=== PATIENT | female | born 2000 | race Caucasian/White ===

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

== ENCOUNTER 2019-05-10 17:04 | Emergency (ER) | payer OTHER, BC ==
[~2019-05-10] VITALS: Ht 160 cm; Wt 50.0 kg
[~2019-05-10 17:04] MED LIST: CIPR-225 PO
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
[2019-05-10] MEDS ORDERED: METH-313 PO (18:26)
--- OUTSIDE RECORDS SUMMARY | 2019-06-03 16:57 | XMS REPORT | Clinical Summary ---
Author Author Admin, E POS Organization [facility] SP Address Unknown SP Phone Unavailable SP Allergies, Adverse Reactions, Alerts Allergy Name Reaction Description Start Date Severity Status Pr ovider POS NKDA Critical Active Tara Luli SP Conditions or Problems Problem Name Problem Code Onset Date Status Entry Date Provider Comment Standard POSDescription Annotate POS SCOLIOSIS 737.30 Resolved Bubba Rao MD Scoliosis SP kyphoscoliosis], idiopathic SP Sports physical V70.3 Resolved Bubba Dyer Other SP medical examination for administrative purposes SP Sore throat 462 Resolved Bubba Rao MD Acute SP SP Otitis media - left 382.9 Resolved Bubba albarran MD SP otitis media SP Allergic rhinitis 477.9 Active Tara Garg APRN Allergic SPrhinitis, cause unspecified SP Contraceptive counseling V25.09 Resolved Bubba Rao SP Encounter for other general counseling and advice on contraceptive SP SP UTI 599.0 Resolved Bubba Rao MD Urinary tract SP site not specified SP Contraception management V25.09 Resolved Bubba Rao SP Encounter for other general counseling and advice on contraceptive SP SP Dysuria 788.1 Resolved Bubba Rao MD Dysuria SP Contraceptive management V25.09 Inactive Lg Schaefer MD SP Encounter for other general counseling a nd advice on contraceptive management SP SP Encounter for Surveillance of implantable subdermal contraceptiv e SP Aminta Schaefer MD SP Irregular menses 626.4 Active Aminta Schaefer MD Irregular SPmenstrual cycle SP Scoliosis, thoracolumbar, mild 737.30 Active 11/03 Bubba DOSS MD Scoliosis [and kyphoscoliosis], idiopath ic SP Well child examination (29d - 17y) V20.2 Active 2 Bubba DOSS MD Routine infant or child health check SP BMI less than 20 Active Martha Sorto MD Body Mass Index SP than 19, adult SP Underweight Active Martha Sorto MD Underweight SP Gross hematuria 597.1 Active Martha DOSS Gynecological examination, routine V72.3 Active 2 Aminta DOSS MD Special investigations and examinations - Gynecological examination SP SCOLIOSIS ICD-737.30 Inactive Bubba DOSS SP Sports physical ICD-V70.3 Inactive Bubba gibson MD SP SP Sore throat ICD-462 Inactive Bubba Rao MD SP SP Otitis media - left ICD-382.9 Inactive Bbuba DOSS SP Contraceptive counseling ICD-V25.09 Inactive Bubba DOSS MD SP UTI ICD-599.0 Inactive Bubba Rao MD 2016 SP Contraception management ICD-V25.09 Inactive Bubba DOSS MD SP Dysuria ICD-788.1 Inactive Bubba Rao MD 2016 SP Medication List Medication Instructions Start Date Stop Date Generic Name NDC Status Provider POS Instruction VITAMIN D-3 1000 UNIT ORAL CAPSULE 1 cap by mouth daily POS 99474183397 No Longer Active Tara Luli Active SP NEXPLANON 68 MG SUBCUTANEOUS IMPLANT ET ONOGESTREL 29478504471 SP Tara Luli Active SP DEPO-PROVERA 150 MG/ML INTRAMUSCULAR SUSPENSION 07/16 SP PRINCESS (CONTRACEP) 47420317446 No Longer Active Tara Rockwell Activ e SP IBUPROFEN 600 MG ORAL TABLET 1 tab po prn for back pain SP 03384184031 No Longer Active Aminta Schaefer MD Active SP DEPO-PROVERA 150 MG/ML INTRAMUSCULAR SUSPENSION one every 3 months SP PRINCESS (CONTRACEP) 79051391939 No Longer Active Aminta Schaefer MD A ctive SP BACTRIM DS 800-160 MG ORAL TABLET 1 po BID x 7 days 24/10/05 SP 31776948311 No Longer Active Bubba Rao MD Activ e SP AMOXICILLIN 500 MG ORAL CAPSULE 1 tab by mouth 3 times daily 201 12/11/21 SP AMOXICILLIN 06051632624 No Longer Active Javi Alexander MD Active SP FLONASE ALLERGY RELIEF 50 MCG/ACT NASAL SUSPENSION 2 SPRAYS EA NOSTRIL DAILY SP FLUTICASONE PROPIONATE 64380167139 No Longer Active Manisha DOSS MD Active SP AMOXICILLIN 500 MG ORAL CAPSULE 1 cap by mouth three times a day SP AMOXICILLIN 22687187139 No Longer Active Tara Garg APRN Active SP CYCLOBENZAPRINE HCL 10 MG ORAL TABLET Take 1/2 tab every evening SP HCL 22949065669 No Longer Active Ki FRAGA Activ e SP CYCLOBENZAPRINE HCL 10 MG ORAL TABLET Take 1/2 tab every evening SP HCL 10 MG ORAL TABLET 676452 CYCLOBENZAPRINE HCL Inactive SP FLONASE ALLERGY RELIEF 50 MCG/ACT NASAL SUSPENSION 2 SPRAYS EA NOSTRIL DAILY SP FLONASE ALLERGY RELIEF 50 MCG/ACT NASAL SUSPENSI ON 1743688 SP PROPIONATE Inactive SP DEPO-PROVERA 150 MG/ML INTRAMUSCULAR SUSPENSION one every 3 months SPPROVERA 150 MG/ML INTRAMUSCULAR SUSPENSION 0196466 MEDROXYPR OGEST PRINCESS SP Inactive SP IBUPROFEN 600 MG ORAL TABLET 1 tab po prn for back pain SP 600 MG ORAL TABLET 647999 IBUPROFEN Inactive SP DEPO-PROVERA 150 MG/ML INTRAMUSCULAR SUSPENSION 07/16 DEPO- SP 150 MG/ML INTRAMUSCULAR SUSPENSION 9345263 MEDROXYPROGEST PRINCESS (CO NTRACEP) SP VITAMIN D-3 1000 UNIT ORAL CAPSULE 1 cap by mouth daily VITAMIN D-3 FT8233 UNIT ORAL CAPSULE CHOLECALCIFEROL Inactive SP AMOXICILLIN 500 MG ORAL CAPSULE 1 cap by mouth three times a day SP AMOXICILLIN 500 MG ORAL CAPSULE 175204 AMOXICILLIN Inactive SP AMOXICILLIN 500 MG ORAL CAPSULE 1 tab by mouth 3 times daily 201 12/11/21 SP AMOXICILLIN 500 MG ORAL CAPSULE 738228 AMOXICILLIN Inactive SP BACTRIM DS 800-160 MG ORAL TABLET 1 po BID x 7 days 24/10/05 SP DS 800-160 MG ORAL TABLET 214622 SULFAMETHOXAZOLE-TRIMETHOPRIM I nactive SP Advance Directives Directive Description Start Date POS PERMISSION TO SHARE SP Immunizations Vaccine Administration Date Value Standard Mitchel cription POS hepatitis A immunization #1 Havrix Adult (HepA) 10PK Syringe SP A vaccine, unspecified formulation Vital Signs Date Name Value Unit Range Description POS blood pressure, diastolic, repeated by physician 84 BP diggs blood pressure, diastolic 84 mm[Hg] BP diggs blood pressure, systolic, repeated by physician 122 BP sys blood pressure, systolic 122 mm[Hg] BP sys height E&M 64 [in_us] Bdy height pulse rate E&M 111 /min Heart rate temperature E&M 99.2 [degF] Body temp erature weight E&M 111 [lb_av] Weight Measure d blood pressure, diastolic, repeated by physician 87 BP diggs blood pressure, diastolic 87 mm[Hg] BP diggs blood pressure, systolic, repeated by physician 120 BP sys blood pressure, systolic 120 mm[Hg] BP sys height E&M 64 [in_us] Bdy height pulse rate E&M 131 /min Heart rate temperature E&M 99.4 [degF] Body temp erature SP weight E&M 99 [lb_av] Weight Measure d SP Diagnostic Results Date Name Value Unit Range Description POS Lab Report: Chlamydia/GC APTIMA/56872 - Lab SP chlamydia DNA probe NOT DETECTED NOT DETECTED SP Lab Report: Chlamydia/GC APTIMA/84020 - Microbiology Neisseria gonorrhoeae DNA probe NOT DETECTED NO T DETECTED SP Office Visit: CN-hematuria with nagative CT scan - Chemistry RBC, urine, dipstick 3+ SP Office Visit: CN-hematuria with nagative CT scan - Urinalysis nitrite, urine, semiquantitative negative urobilinogen, urine, semiquantitative (dipstick) 0.2 leukocyte esterase, urine, by dipstick negative appearance, urine clear urine color yellow specific gravity, urine 1.030 SP pH, urine, semiquantitative 5.0 protein, urine, semiquantitative (dipstick) 3+ SP glucose, urine, semiquantitative negative ketones, urine, by test strip negative bilirubin, urine negative SP Encounters Code Encounter Date Provider Facility POS CPT-84572 Level 3 New Patient 16:31:45 IDENTIFICATION TECHNICIAN Martha mcgovern MD [facility] CPT-02059 Level 3 Est. Patient 15:18:56 IDENTIFICATION TECHNICIAN Aminta aleman MD [facility] CPT-36911 Level 3 New Patient 09:54:09 CDT Aminta crockett MD [facility] CPT-96037 Level 3 Est. Patient 16:13:04 CDT Bubba Rao MD [facility]-11620 Level 3 Est. Patient 09:13:57 CDT Javi helton MD [facility] CPT-86156 Level 3 Est. Patient 19:39:38 IDENTIFICATION TECHNICIAN Mona garcia APRN [facility] CPT-57908 Level 3 Est. Patient 16:36:36 IDENTIFICATION TECHNICIAN Tara Turk ll OLERICULTURIST [facility]ay[facility] CPT-02103 Level 3 Est. Patient 18:16:09 IDENTIFICATION TECHNICIAN Ki Guadalupe [facility] CPT-69258 Level 3 Est. Patient 23:51:12 CDT Dru Bowling ee DO [facility] Procedures Code Procedure Name Date Entry Date Standard Desc ription POS CPT-21397 92514 - Immun Admin each additional 1 3:29:02 IDENTIFICATION TECHNICIAN SP SP CPT-99150 Havrix Adult (HepA) 10PK Syringe 13:29:[address] SP CPT-10754 85629 - Immun Admin 1 vac 13:29:02 IDENTIFICATION TECHNICIAN 2018 SP CPT-04826 Bexsero (Meningococcal) 10PK Syringe 13:29:02 IDENTIFICATION TECHNICIAN SP CPT-54747 Prv Med Est Pt 18-39yrs 12:06:42 IDENTIFICATION TECHNICIAN 07/28 SP CPT-31327 Cystoscopy 16:31:45 IDENTIFICATION TECHNICIAN SP CPT-J1050 Depo Provera 150 mg (Medroxyprogesterone) 07/16 16:14:20 IDENTIFICATION TECHNICIAN SP SP CPT-28148 Abx/Therapy Injection 16:14:20 IDENTIFICATION TECHNICIAN SP CPT-J1050 Depo Provera 150 mg (Medroxyprogesterone) 07/16 15:18:56 IDENTIFICATION TECHNICIAN SP SP CPT-J1050 Depo Provera 150 mg (Medroxyprogesterone) 02/22 17:47:25 CDT SP SP CPT-40562 Abx/Therapy Injection 17:47:25 CDT SP CPT-J1050 Depo Provera 150 mg (Medroxyprogesterone) 11/29 15:01:13 CDT SP SP CPT-77847 Abx/Therapy Injection 15:01:13 CDT SP CPT-J1050 Depo Provera 150 mg (Medroxyprogesterone) 09/12 15:43:44 IDENTIFICATION TECHNICIAN SP CPT-74681 Abx/Therapy Injection 15:43:43 IDENTIFICATION TECHNICIAN SP CPT-J1050 Depo Provera 150 mg (Medroxyprogesterone) 08/20 15:27:07 IDENTIFICATION TECHNICIAN [facility] CPT-17580 Abx/Therapy Injection 15:27:07 IDENTIFICATION TECHNICIAN SP CPT-J1050 Depo Provera 150 mg (Medroxyprogesterone) 04/04 14:51:55 CDT [facility] CPT-02684 Abx/Therapy Injection 14:51:55 CDT SP CPT-J1050 Depo Provera 150 mg (Medroxyprogesterone) 01/06 16:36:56 CDT [facility] CPT-96413 Abx/Therapy Injection 16:36:56 CDT CPT-88567 Administration 2+ single or combination vaccines inc oral SP CDT SP CPT-15130 Meningococcal B, OMV vaccine 17:00:43 CDT 2 SP CPT-69544 First Vx - Ix admin via ID I M or jet injects without counseling by SP 17:00:43 CDT SP CPT-04530 Menveo Intramuscular Solution Reconstituted 2016 17:00:41 CDT [facility] CPT-77548 Scoliosis 1 view - XRAY USE ONLY 15:43:41 C DT SP CPT-PV Prev. Care Visit 15:17:45 CDT SP CPT-J1050 Depo Provera 150 mg (Medroxyprogesterone) 10/17 15:23:30 CDT SP CPT-03650 Abx/Therapy Injection 15:23:30 CDT CPT-J1050 Depo Provera 150 mg (Medroxyprogesterone) 10/17 09:54:10 CDT SP SP CPT-J1050 Depo Provera 150 mg (Medroxyprogesterone) 07/20 15:55:07 IDENTIFICATION TECHNICIAN SP SP CPT-18390 Abx/Therapy Injection 15:55:07 IDENTIFICATION TECHNICIAN SP CPT-J1050 Depo Provera 150 mg (Medroxyprogesterone) 07/20 14:13:45 IDENTIFICATION TECHNICIAN SP SP CPT-J1050 Depo Provera 150 mg (Medroxyprogesterone) 17:31:27 CDT SP SP CPT-61551 Abx/Therapy Injection 17:31:27 CDT SP CPT-J1050 Depo Provera 150 mg (Medroxyprogesterone) 08:47:12 CDT SP SP CPT-J1050 Depo Provera 150 mg (Medroxyprogesterone) 02/09 14:41:46 CDT SP SP CPT-J1050 Depo Provera 150 mg (Medroxyprogesterone) 02/08 10:57:18 CDT SP SP CPT-J1050 Depo Provera 150 mg (Medroxyprogesterone) 11/24 16:22:00 CDT SP SP CPT-28605 Abx/Therapy Injection 16:22:00 CDT SP CPT-J1050 Depo Provera 150 mg (Medroxyprogesterone) 09/07 15:03:00 IDENTIFICATION TECHNICIAN SP SP CPT-34041 Abx/Therapy Injection 15:03:00 IDENTIFICATION TECHNICIAN SP CPT-87357 Immunization Each Additional Inj 15:01:[address] SP CPT-00287 Immunization Single Admin 15:01:50 IDENTIFICATION TECHNICIAN 2015 SP CPT-80858 Vaqta (2 dose - Ped/Adol) 15:01:50 IDENTIFICATION TECHNICIAN 2015 SP CPT-07323 Gardasil 15:01:50 IDENTIFICATION TECHNICIAN ROMAR[facility] CPT-J1055 Depo-Provera Injection only 150mg 08:51:07 IDENTIFICATION TECHNICIAN [facility] CPT-07994 Scoliosis w sup/erect 17:37:29 CDT [facility]
--- OUTSIDE RECORDS SUMMARY | 2019-06-03 16:57 | XMS REPORT | Clinical Summary ---
Author Author Admin, SAPNA POS Organization [facility] SP Address Unknown SP Phone Unavailable SP [...] SP Otitis media - left ICD-382.9 Inactive Bubba DOSS SP Contraceptive counseling ICD-V25.09 Inactive Bubba DOSS MD SP UTI ICD-599.0 Inactive Bubba Rao MD 2016 SP Contraception management ICD-V25.09 Inactive Bubba DOSS MD SP Dysuria ICD-788.1 Inactive Bubba Rao MD 2016 SP Medication List Medication Instructions Start Date Stop Date Generic Name NDC Status Provider POS Instruction VITAMIN D-3 1000 UNIT ORAL CAPSULE 1 cap by mouth daily POS [id number] No Longer Active Tara Luli Active SP NEXPLANON 68 MG SUBCUTANEOUS IMPLANT ET ONOGESTREL [id number] SP Tara Luli Active SP DEPO-PROVERA 150 MG/ML INTRAMUSCULAR SUSPENSION 07/16 SP PRINCESS (CONTRACEP) 88446676951 No Longer Active Tara Rockwell Activ e SP IBUPROFEN 600 MG ORAL TABLET 1 tab po prn for back pain SP 71925967954 No Longer Active Aminta Schaefer MD Active SP DEPO-PROVERA 150 MG/ML INTRAMUSCULAR SUSPENSION one every 3 months SP PRINCESS (CONTRACEP) 55455890859 No Longer Active Aminta Schaefer MD A ctive SP BACTRIM DS 800-160 MG ORAL TABLET 1 po BID x 7 days 24/10/05 SP 91965155864 No Longer Active Bubba Rao MD Activ e SP AMOXICILLIN 500 MG ORAL CAPSULE 1 tab by mouth 3 times daily 201 12/11/21 SP AMOXICILLIN 46061878964 No Longer Active Javi Alexander MD Active SP FLONASE ALLERGY RELIEF 50 MCG/ACT NASAL SUSPENSION 2 SPRAYS EA NOSTRIL DAILY SP FLUTICASONE PROPIONATE 84743945426 No Longer Active Manisha DOSS MD Active SP AMOXICILLIN 500 MG ORAL CAPSULE 1 cap by mouth three times a day SP AMOXICILLIN 67943206546 No Longer Active Tara Garg APRN Active SP CYCLOBENZAPRINE HCL 10 MG ORAL TABLET Take 1/2 tab every evening SP HCL 41566549788 No Longer Active Ki FRAGA Activ e SP CYCLOBENZAPRINE HCL 10 MG ORAL TABLET Take 1/2 tab every evening SP HCL 10 MG ORAL TABLET 819425 CYCLOBENZAPRINE HCL Inactive SP FLONASE ALLERGY RELIEF 50 MCG/ACT NASAL SUSPENSION 2 SPRAYS EA NOSTRIL DAILY SP FLONASE ALLERGY RELIEF 50 MCG/ACT NASAL SUSPENSI ON 6666188 SP PROPIONATE Inactive SP DEPO-PROVERA 150 MG/ML INTRAMUSCULAR SUSPENSION one every 3 months SPPROVERA 150 MG/ML INTRAMUSCULAR SUSPENSION 1506093 MEDROXYPR OGEST PRINCESS SP Inactive SP IBUPROFEN 600 MG ORAL TABLET 1 tab po prn for back pain SP 600 MG ORAL TABLET 326539 IBUPROFEN Inactive SP DEPO-PROVERA 150 MG/ML INTRAMUSCULAR SUSPENSION 07/16 DEPO- SP 150 MG/ML INTRAMUSCULAR SUSPENSION 4082971 MEDROXYPROGEST PRINCESS (CO NTRACEP) SP VITAMIN D-3 1000 UNIT ORAL CAPSULE 1 cap by mouth daily VITAMIN D-3 [id number] UNIT ORAL CAPSULE CHOLECALCIFEROL Inactive SP AMOXICILLIN 500 MG ORAL CAPSULE 1 cap by mouth three times a day SP AMOXICILLIN 500 MG ORAL CAPSULE 748402 AMOXICILLIN Inactive SP AMOXICILLIN 500 MG ORAL CAPSULE 1 tab by mouth 3 times daily 201 12/11/21 SP AMOXICILLIN 500 MG ORAL CAPSULE 078140 AMOXICILLIN Inactive SP BACTRIM DS 800-160 MG ORAL TABLET 1 po BID x 7 days 24/10/05 SP DS 800-160 MG ORAL TABLET 315197 SULFAMETHOXAZOLE-TRIMETHOPRIM I nactive SP Advance Directives Directive [...] temperature E&M 99.4 [degF] Body temp erature weight E&M 99 [lb_av] Weight Measure d SP Diagnostic Results Date Name Value Unit Range Description POS Office Visit: CN-hematuria with nagative CT scan - Chemistry RBC, urine, dipstick 3+ SP Office Visit: CN-hematuria with nagative CT scan - Urinalysis SP nitrite, urine, semiquantitative negative SP urobilinogen, urine, semiquantitative (dipstick) 0.2 SP leukocyte esterase, urine, by dipstick negative appearance, urine clear SP urine color yellow SP specific gravity, urine 1.030 SP pH, urine, semiquantitative 5.0 SP protein, urine, semiquantitative (dipstick) 3+ SP glucose, urine, semiquantitative negative ketones, urine, by test strip negative bilirubin, urine negative SP Encounters Code Encounter Date Provider Facility POS CPT-59897 Level 3 New Patient 16:31:45 SCRAP DROP OPERATOR Martha mcgovern MD [facility] CPT-84272 Level 3 Est. Patient 15:18:56 SCRAP DROP OPERATOR Aminta aleman MD [facility] CPT-67365 Level 3 New Patient 09:54:09 CDT Aminta crockett MD [facility] CPT-13413 Level 3 Est. Patient 16:13:04 CDT Bubba Rao MD [facility] CPT-16307 Level 3 Est. Patient 09:13:57 CDT Javi helton MD [facility] CPT-66927 Level 3 Est. Patient 19:39:38 SCRAP DROP OPERATOR Mona garcia [facility] Level 3 Est. Patient 16:36:36 SCRAP DROP OPERATOR Tara finley [facility]20963 Level 3 Est. Patient 18:16:09 SCRAP DROP OPERATOR Ki FRAGA Anayeli Ql[facility] CPT-37006 Level 3 Est. Patient 23:51:12 CDT Dru Matson [facility] Procedures Code Procedure Name Date Entry Date Standard Desc ription POS CPT-81323 66569 - Immun Admin each additional 1 3:29:02 SCRAP DROP OPERATOR SP SP CPT-56720 Havrix Adult (HepA) 10PK Syringe 13:29:[address] SP CPT-00255 63393 - Immun Admin 1 vac 13:29:02 SCRAP DROP OPERATOR 2018 SP CPT-14488 Bexsero (Meningococcal) 10PK Syringe 13:29:02 SCRAP DROP OPERATOR SP SP CPT-55750 Prv Med Est Pt 18-39yrs 12:06:42 SCRAP DROP OPERATOR 07/28 SP CPT-82488 Cystoscopy 16:31:45 SCRAP DROP OPERATOR SP CPT-J1050 Depo Provera 150 mg (Medroxyprogesterone) 07/16 16:14:20 SCRAP DROP OPERATOR SP SP CPT-75462 Abx/Therapy Injection 16:14:20 SCRAP DROP OPERATOR SP CPT-J1050 Depo Provera 150 mg (Medroxyprogesterone) 07/16 15:18:56 SCRAP DROP OPERATOR SP SP CPT-J1050 Depo Provera 150 mg (Medroxyprogesterone) 02/22 17:47:25 CDT SP SP CPT-12205 Abx/Therapy Injection 17:47:25 CDT SP CPT-J1050 Depo Provera 150 mg (Medroxyprogesterone) 11/29 15:01:13 CDT SP SP CPT-68266 Abx/Therapy Injection 15:01:13 CDT SP CPT-J1050 Depo Provera 150 mg (Medroxyprogesterone) 09/12 15:43:44 SCRAP DROP OPERATOR SP SP CPT-29825 Abx/Therapy Injection 15:43:43 SCRAP DROP OPERATOR SP CPT-J1050 Depo Provera 150 mg (Medroxyprogesterone) 08/20 15:27:07 SCRAP DROP OPERATOR SP CPT-44697 Abx/Therapy Injection 15:27:07 SCRAP DROP OPERATOR SP CPT-J1050 Depo Provera 150 mg (Medroxyprogesterone) 04/04 14:51:55 CDT [facility] CPT-70665 Abx/Therapy Injection 14:51:55 CDT SP CPT-J1050 Depo Provera 150 mg (Medroxyprogesterone) 01/06 16:36:56 CDT [facility] CPT-96073 Abx/Therapy Injection 16:36:56 CDT SP CPT-95332 Administration 2+ single or combination vaccines inc oral SP CDT SP CPT-01567 Meningococcal B, OMV vaccine 17:00:43 CDT 2 SP CPT-68463 First Vx - Ix admin via ID I M or jet injects without counseling by SP 17:00:43 CDT SP CPT-75049 Menveo Intramuscular Solution Reconstituted 2016 17:00:41 CDT [facility] CPT-56454 Scoliosis 1 view - XRAY USE ONLY 15:43:41 C DT SP CPT-PV Prev. Care Visit 15:17:45 CDT SP CPT-J1050 Depo Provera 150 mg (Medroxyprogesterone) 10/17 15:23:30 CDT SP CPT-78909 Abx/Therapy Injection 15:23:30 CDT SP CPT-J1050 Depo Provera 150 mg (Medroxyprogesterone) 10/17 09:54:10 CDT SP CPT-J1050 Depo Provera 150 mg (Medroxyprogesterone) 07/20 15:55:07 SCRAP DROP OPERATOR SP CPT-93087 Abx/Therapy Injection 15:55:07 SCRAP DROP OPERATOR SP CPT-J1050 Depo Provera 150 mg (Medroxyprogesterone) 07/20 14:13:45 SCRAP DROP OPERATOR SP SP CPT-J1050 Depo Provera 150 mg (Medroxyprogesterone) 17:31:27 CDT SP SP CPT-55347 Abx/Therapy Injection 17:31:27 CDT SP CPT-J1050 Depo Provera 150 mg (Medroxyprogesterone) 08:47:12 CDT SP SP CPT-J1050 Depo Provera 150 mg (Medroxyprogesterone) 02/09 14:41:46 CDT SP SP CPT-J1050 Depo Provera 150 mg (Medroxyprogesterone) 02/08 10:57:18 CDT SP SP CPT-J1050 Depo Provera 150 mg (Medroxyprogesterone) 11/24 16:22:00 CDT SP SP CPT-24372 Abx/Therapy Injection 16:22:00 CDT SP CPT-J1050 Depo Provera 150 mg (Medroxyprogesterone) 09/07 15:03:00 SCRAP DROP OPERATOR SP SP CPT-34158 Abx/Therapy Injection 15:03:00 SCRAP DROP OPERATOR SP CPT-63915 Immunization Each Additional Inj 15:01:[address] SP CPT-25618 Immunization Single Admin 15:01:50 SCRAP DROP OPERATOR 2015 SP CPT-34137 Vaqta (2 dose - Ped/Adol) 15:01:50 SCRAP DROP OPERATOR 2015 SP CPT-70800 Gardasil 15:01:50 SCRAP DROP OPERATOR SP CPT-J1055 Depo-Provera Injection only 150mg 08:51:07 SCRAP DROP OPERATOR SP CPT-96930 Scoliosis w sup/erect 17:37:29 CDT SP
--- OUTSIDE RECORDS SUMMARY | 2019-06-03 16:58 | XMS REPORT | Clinical Summary ---
Author Author Admin, E POS Organization [facility] SP Address Unknown SP Phone Unavailable SP [...] CAPSULE 1 cap by mouth daily POS [id number] No Longer Active Tara Luli Active SP NEXPLANON 68 MG SUBCUTANEOUS IMPLANT ET ONOGESTREL 57494919909 SP Tara Luli Active SP DEPO-PROVERA 150 MG/ML INTRAMUSCULAR SUSPENSION 07/16 SP PRINCESS (CONTRACEP) 57341277704 No Longer Active Tara Rockwell Activ e SP IBUPROFEN 600 MG ORAL TABLET 1 tab po prn for back pain SP 96810288560 No Longer Active Aminta Schaefer MD Active SP DEPO-PROVERA 150 MG/ML INTRAMUSCULAR SUSPENSION one every 3 months SP PRINCESS (CONTRACEP) 16151331975 No Longer Active Aminta Schaefer MD A ctive SP BACTRIM DS 800-160 MG ORAL TABLET 1 po BID x 7 days 24/10/05 SP 04452023092 No Longer Active Bubba Rao MD Activ e SP AMOXICILLIN 500 MG ORAL CAPSULE 1 tab by mouth 3 times daily 201 12/11/21 SP AMOXICILLIN 39696220888 No Longer Active Javi Alexander MD Active SP FLONASE ALLERGY RELIEF 50 MCG/ACT NASAL SUSPENSION 2 SPRAYS EA NOSTRIL DAILY SP FLUTICASONE PROPIONATE 76127915123 No Longer Active Manisha DOSS MD Active SP AMOXICILLIN 500 MG ORAL CAPSULE 1 cap by mouth three times a day SP AMOXICILLIN 55950330894 No Longer Active Tara Garg APRN Active SP CYCLOBENZAPRINE HCL 10 MG ORAL TABLET Take 1/2 tab every evening SP HCL 18999556669 No Longer Active Ki FRAGA Activ e SP CYCLOBENZAPRINE HCL 10 MG ORAL TABLET Take 1/2 tab every evening SP HCL 10 MG ORAL TABLET 744201 CYCLOBENZAPRINE HCL Inactive SP FLONASE ALLERGY RELIEF 50 MCG/ACT NASAL SUSPENSION 2 SPRAYS EA NOSTRIL DAILY SP FLONASE ALLERGY RELIEF 50 MCG/ACT NASAL SUSPENSI ON 6653089 SP PROPIONATE Inactive SP DEPO-PROVERA 150 MG/ML INTRAMUSCULAR SUSPENSION one every 3 months SPPROVERA 150 MG/ML INTRAMUSCULAR SUSPENSION 5675785 MEDROXYPR OGEST PRINCESS SP Inactive SP IBUPROFEN 600 MG ORAL TABLET 1 tab po prn for back pain SP 600 MG ORAL TABLET 043228 IBUPROFEN Inactive SP DEPO-PROVERA 150 MG/ML INTRAMUSCULAR SUSPENSION 07/16 DEPO- SP 150 MG/ML INTRAMUSCULAR SUSPENSION 7871090 MEDROXYPROGEST PRINCESS (CO NTRACEP) SP VITAMIN D-3 1000 UNIT ORAL CAPSULE 1 cap by mouth daily VITAMIN D-3 ZK2809 UNIT ORAL CAPSULE CHOLECALCIFEROL Inactive SP AMOXICILLIN 500 MG ORAL CAPSULE 1 cap by mouth three times a day SP AMOXICILLIN 500 MG ORAL CAPSULE 854630 AMOXICILLIN Inactive SP AMOXICILLIN 500 MG ORAL CAPSULE 1 tab by mouth 3 times daily 201 12/11/21 SP AMOXICILLIN 500 MG ORAL CAPSULE 788508 AMOXICILLIN Inactive SP BACTRIM DS 800-160 MG ORAL TABLET 1 po BID x 7 days 24/10/05 SP DS 800-160 MG ORAL TABLET 126657 SULFAMETHOXAZOLE-TRIMETHOPRIM I nactive SP Advance Directives Directive Description Start Date POS PERMISSION TO SHARE SP Vital Signs Date Name Value Unit Range Description POS blood pressure, diastolic, repeated by physician 84 BP diggs blood pressure, diastolic 84 mm[Hg] BP diggs blood pressure, systolic, repeated by physician 122 BP sys blood pressure, systolic 122 mm[Hg] BP sys height E&M 64 [in_us] Bdy height SP pulse rate E&M 111 /min Heart rate SP temperature E&M 99.2 [degF] Body temp erature SP weight E&M 111 [lb_av] Weight Measure d SP blood pressure, diastolic, repeated by physician 87 BP diggs blood pressure, diastolic 87 mm[Hg] BP diggs blood pressure, systolic, repeated by physician 120 BP sys blood pressure, systolic 120 mm[Hg] BP sys height E&M 64 [in_us] Bdy height pulse rate E&M 131 /min Heart rate SP temperature E&M 99.4 [degF] Body temp erature weight E&M 99 [lb_av] Weight Measure d SP Diagnostic Results Date Name Value Unit Range Description POS Office Visit: CN-hematuria with nagative CT scan - Chemistry SP RBC, urine, dipstick 3+ SP Office Visit: [...] Encounters Code Encounter Date Provider Facility POS CPT-44737 Level 3 New Patient 16:31:45 BOARD CATCHER Martha mcgovern MD [facility] CPT-18609 Level 3 Est. Patient 15:18:56 BOARD CATCHER Aminta aleman MD [facility] CPT-23355 Level 3 New Patient 09:54:09 CDT Aminta crockett MD [facility]-78368 Level 3 Est. Patient 16:13:04 CDT Bubba Rao MD [facility] CPT-74873 Level 3 Est. Patient 09:13:57 CDT Javi helton MD [facility] CPT-21504 Level 3 Est. Patient 19:39:38 BOARD CATCHER Mona garcia [facility] CPT-21314 Level 3 Est. Patient 16:36:36 BOARD CATCHER Tara finley [facility]-08753 Level 3 Est. Patient 18:16:09 BOARD CATCHER Ki FRAGA [facility] CPT-00803 Level 3 Est. Patient 23:51:12 CDT Dru jacobs DO [facility] Procedures Code Procedure Name Date Entry Date Standard Desc ription POS CPT-40513 Prv Med Est Pt 18-39yrs 12:06:42 BOARD CATCHER 07/28 SP CPT-79465 Cystoscopy 16:31:45 BOARD CATCHER SP CPT-J1050 Depo Provera 150 mg (Medroxyprogesterone) 07/16 16:14:20 BOARD CATCHER SP SP CPT-77802 Abx/Therapy Injection 16:14:20 BOARD CATCHER SP CPT-J1050 Depo Provera 150 mg (Medroxyprogesterone) 07/16 15:18:56 BOARD CATCHER SP SP CPT-J1050 Depo Provera 150 mg (Medroxyprogesterone) 02/22 17:47:25 CDT SP SP CPT-64136 Abx/Therapy Injection 17:47:25 CDT SP CPT-J1050 Depo Provera 150 mg (Medroxyprogesterone) 11/29 15:01:13 CDT SP SP CPT-29817 Abx/Therapy Injection 15:01:13 CDT SP CPT-J1050 Depo Provera 150 mg (Medroxyprogesterone) 09/12 15:43:44 BOARD CATCHER SP SP CPT-14844 Abx/Therapy Injection 15:43:43 BOARD CATCHER SP CPT-J1050 Depo Provera 150 mg (Medroxyprogesterone) 08/20 15:27:07 BOARD CATCHER SP SP CPT-13079 Abx/Therapy Injection 15:27:07 BOARD CATCHER SP CPT-J1050 Depo Provera 150 mg (Medroxyprogesterone) 04/04 14:51:55 CDT SP SP CPT-80785 Abx/Therapy Injection 14:51:55 CDT SP CPT-J1050 Depo Provera 150 mg (Medroxyprogesterone) 01/06 16:36:56 CDT SP SP CPT-25389 Abx/Therapy Injection 16:36:56 CDT SP CPT-32164 Administration 2+ single or combination vaccines inc oral SP CDT SP CPT-52615 Meningococcal B, OMV vaccine 17:00:43 CDT 2 SP CPT-30182 First Vx - Ix admin via ID I M or jet injects without counseling by SP 17:00:43 CDT SP CPT-21505 Menveo Intramuscular Solution Reconstituted 2016 17:00:41 CDT SP SP CPT-78002 Scoliosis 1 view - XRAY USE ONLY 15:43:41 C DT ROMARIO CPT-PV Prev. Care Visit 15:17:45 CDT SP CPT-J1050 Depo Provera 150 mg (Medroxyprogesterone) 10/17 15:23:30 CDT [facility] CPT-51558 Abx/Therapy Injection 15:23:30 CDT CPT-J1050 Depo Provera 150 mg (Medroxyprogesterone) 10/17 09:54:10 CDT [facility] CPT-J1050 Depo Provera 150 mg (Medroxyprogesterone) 07/20 15:55:07 BOARD CATCHER [facility] CPT-09696 Abx/Therapy Injection 15:55:07 BOARD CATCHER CPT-J1050 Depo Provera 150 mg (Medroxyprogesterone) 07/20 14:13:45 BOARD CATCHER [facility] CPT-J1050 Depo Provera 150 mg (Medroxyprogesterone) 17:31:27 CDT [facility] CPT-43295 Abx/Therapy Injection 17:31:27 CDT CPT-J1050 Depo Provera 150 mg (Medroxyprogesterone) 08:47:12 CDT [facility] CPT-J1050 Depo Provera 150 mg (Medroxyprogesterone) 02/09 14:41:46 CDT SP SP CPT-J1050 Depo Provera 150 mg (Medroxyprogesterone) 02/08 10:57:18 CDT SP SP CPT-J1050 Depo Provera 150 mg (Medroxyprogesterone) 11/24 16:22:00 CDT SP SP CPT-77165 Abx/Therapy Injection 16:22:00 CDT SP CPT-J1050 Depo Provera 150 mg (Medroxyprogesterone) 09/07 15:03:00 BOARD CATCHER SP SP CPT-05305 Abx/Therapy Injection 15:03:00 BOARD CATCHER SP CPT-03196 Immunization Each Additional Inj 15:01:[address] SP CPT-02001 Immunization Single Admin 15:01:50 BOARD CATCHER 2015 SP CPT-39057 Vaqta (2 dose - Ped/Adol) 15:01:50 BOARD CATCHER 2015 SP CPT-81921 Gardasil 15:01:50 BOARD CATCHER SP CPT-J1055 Depo-Provera Injection only 150mg 08:51:07 BOARD CATCHER SP CPT-07665 Scoliosis w sup/erect 17:37:29 CDT SP
--- OUTSIDE RECORDS SUMMARY | 2019-06-03 16:58 | XMS REPORT | Clinical Summary ---
Author Author Admin, SAPNA POS Organization [employer] SP Address Unknown SP Phone Unavailable SP [...] CAPSULE 1 cap by mouth daily POS 70289406830 No Longer Active Tara Luli Active SP NEXPLANON 68 MG SUBCUTANEOUS IMPLANT ET ONOGESTREL 55560056992 SP Tara Luli Active SP DEPO-PROVERA 150 MG/ML INTRAMUSCULAR SUSPENSION 07/16 SP PRINCESS (CONTRACEP) 24190249498 No Longer Active Tara Rockwell Activ e SP IBUPROFEN 600 MG ORAL TABLET 1 tab po prn for back pain SP 02149245385 No Longer Active Aminta Schaefer MD Active SP DEPO-PROVERA 150 MG/ML INTRAMUSCULAR SUSPENSION one every 3 months SP PRINCESS (CONTRACEP) 44358974150 No Longer Active Aminta Schaefer MD A ctive SP BACTRIM DS 800-160 MG ORAL TABLET 1 po BID x 7 days 24/10/05 SP 58622629632 No Longer Active Bubba Rao MD Activ e SP AMOXICILLIN 500 MG ORAL CAPSULE 1 tab by mouth 3 times daily 201 12/11/21 SP AMOXICILLIN 44164571290 No Longer Active Javi Alexander MD Active SP FLONASE ALLERGY RELIEF 50 MCG/ACT NASAL SUSPENSION 2 SPRAYS EA NOSTRIL DAILY SP FLUTICASONE PROPIONATE 62116444047 No Longer Active Manisha DOSS MD Active SP AMOXICILLIN 500 MG ORAL CAPSULE 1 cap by mouth three times a day SP AMOXICILLIN 18782765206 No Longer Active Tara Garg APRN Active SP CYCLOBENZAPRINE HCL 10 MG ORAL TABLET Take 1/2 tab every evening SP HCL 29387351567 No Longer Active Ki FRAGA Activ e SP CYCLOBENZAPRINE HCL 10 MG ORAL TABLET Take 1/2 tab every evening SP HCL 10 MG ORAL TABLET 167852 CYCLOBENZAPRINE HCL Inactive SP FLONASE ALLERGY RELIEF 50 MCG/ACT NASAL SUSPENSION 2 SPRAYS EA NOSTRIL DAILY SP FLONASE ALLERGY RELIEF 50 MCG/ACT NASAL SUSPENSI ON 8889901 SP PROPIONATE Inactive SP DEPO-PROVERA 150 MG/ML INTRAMUSCULAR SUSPENSION one every 3 months SPPROVERA 150 MG/ML INTRAMUSCULAR SUSPENSION 6396557 MEDROXYPR OGEST PRINCESS SP Inactive SP IBUPROFEN 600 MG ORAL TABLET 1 tab po prn for back pain SP 600 MG ORAL TABLET 723760 IBUPROFEN Inactive SP DEPO-PROVERA 150 MG/ML INTRAMUSCULAR SUSPENSION 07/16 DEPO- SP 150 MG/ML INTRAMUSCULAR SUSPENSION 7077047 MEDROXYPROGEST PRINCESS (CO NTRACEP) SP VITAMIN D-3 1000 UNIT ORAL CAPSULE 1 cap by mouth daily VITAMIN D-3 MC7940 UNIT ORAL CAPSULE CHOLECALCIFEROL Inactive SP AMOXICILLIN 500 MG ORAL CAPSULE 1 cap by mouth three times a day SP AMOXICILLIN 500 MG ORAL CAPSULE 911047 AMOXICILLIN Inactive SP AMOXICILLIN 500 MG ORAL CAPSULE 1 tab by mouth 3 times daily 201 12/11/21 SP AMOXICILLIN 500 MG ORAL CAPSULE 272681 AMOXICILLIN Inactive SP BACTRIM DS 800-160 MG ORAL TABLET 1 po BID x 7 days 24/10/05 SP DS 800-160 MG ORAL TABLET 656084 SULFAMETHOXAZOLE-TRIMETHOPRIM I nactive SP Advance Directives Directive [...] Encounters Code Encounter Date Provider Facility POS CPT-79071 Level 3 New Patient 16:31:45 CHEESE SPRAYER Martha mcgovern MD [facility] CPT-59613 Level 3 Est. Patient 15:18:56 CHEESE SPRAYER Aminta aleman MD [facility] CPT-34071 Level 3 New Patient 09:54:09 CDT Aminta crockett MD [facility] CPT-02472 Level 3 Est. Patient 16:13:04 CDT Bubba Rao MD [facility] CPT-60587 Level 3 Est. Patient 09:13:57 CDT Javi helton MD [facility] CPT-80463 Level 3 Est. Patient 19:39:38 CHEESE SPRAYER [facility] Level 3 Est. Patient 16:36:36 CHEESE SPRAYER [facility] fin[facility] CPT-48954 Level 3 Est. Patient 18:16:09 CHEESE SPRAYER Ki FRAGA [facility] CPT-04294 Level 3 Est. Patient 23:51:12 CDT Dru Matson [facility] Procedures Code Procedure Name Date Entry Date Standard Desc ription POS CPT-08127 34644 - Immun Admin each additional 1 3:29:02 CHEESE SPRAYER SP SP CPT-66867 Havrix Adult (HepA) 10PK Syringe 13:29:[address] SP CPT-19276 45520 - Immun Admin 1 vac 13:29:02 CHEESE SPRAYER 2018 SP CPT-00891 Bexsero (Meningococcal) 10PK Syringe 13:29:02 CHEESE SPRAYER SP SP CPT-04009 Prv Med Est Pt 18-39yrs 12:06:42 CHEESE SPRAYER 07/28 SP CPT-50139 Cystoscopy 16:31:45 CHEESE SPRAYER SP CPT-J1050 Depo Provera 150 mg (Medroxyprogesterone) 07/16 16:14:20 CHEESE SPRAYER SP SP CPT-39086 Abx/Therapy Injection 16:14:20 CHEESE SPRAYER SP CPT-J1050 Depo Provera 150 mg (Medroxyprogesterone) 07/16 15:18:56 CHEESE SPRAYER SP SP CPT-J1050 Depo Provera 150 mg (Medroxyprogesterone) 02/22 17:47:25 CDT SP SP CPT-60289 Abx/Therapy Injection 17:47:25 CDT SP CPT-J1050 Depo Provera 150 mg (Medroxyprogesterone) 11/29 15:01:13 CDT SP SP CPT-99168 Abx/Therapy Injection 15:01:13 CDT SP CPT-J1050 Depo Provera 150 mg (Medroxyprogesterone) 09/12 15:43:44 CHEESE SPRAYER SP SP CPT-29563 Abx/Therapy Injection 15:43:43 CHEESE SPRAYER SP CPT-J1050 Depo Provera 150 mg (Medroxyprogesterone) 08/20 15:27:07 CHEESE SPRAYER SP CPT-96017 Abx/Therapy Injection 15:27:07 CHEESE SPRAYER SP CPT-J1050 Depo Provera 150 mg (Medroxyprogesterone) 04/04 14:51:55 CDT [facility] CPT-28484 Abx/Therapy Injection 14:51:55 CDT SP CPT-J1050 Depo Provera 150 mg (Medroxyprogesterone) 01/06 16:36:56 CDT [facility] CPT-45984 Abx/Therapy Injection 16:36:56 CDT SP CPT-35423 Administration 2+ single or combination vaccines inc oral SP CDT SP CPT-22185 Meningococcal B, OMV vaccine 17:00:43 CDT 2 SP CPT-42486 First Vx - Ix admin via ID I M or jet injects without counseling by SP 17:00:43 CDT SP CPT-27038 Menveo Intramuscular Solution Reconstituted 2016 17:00:41 CDT [facility] CPT-74997 Scoliosis 1 view - XRAY USE ONLY 15:43:41 C DT SP CPT-PV Prev. Care Visit 15:17:45 CDT SP CPT-J1050 Depo Provera 150 mg (Medroxyprogesterone) 10/17 15:23:30 CDT SP CPT-45617 Abx/Therapy Injection 15:23:30 CDT SP CPT-J1050 Depo Provera 150 mg (Medroxyprogesterone) 10/17 09:54:10 CDT SP CPT-J1050 Depo Provera 150 mg (Medroxyprogesterone) 07/20 15:55:07 CHEESE SPRAYER SP CPT-76320 Abx/Therapy Injection 15:55:07 CHEESE SPRAYER SP CPT-J1050 Depo Provera 150 mg (Medroxyprogesterone) 07/20 14:13:45 CHEESE SPRAYER SP SP CPT-J1050 Depo Provera 150 mg (Medroxyprogesterone) 17:31:27 CDT SP SP CPT-81368 Abx/Therapy Injection 17:31:27 CDT SP CPT-J1050 Depo Provera 150 mg (Medroxyprogesterone) 08:47:12 CDT SP SP CPT-J1050 Depo Provera 150 mg (Medroxyprogesterone) 02/09 14:41:46 CDT SP SP CPT-J1050 Depo Provera 150 mg (Medroxyprogesterone) 02/08 10:57:18 CDT SP SP CPT-J1050 Depo Provera 150 mg (Medroxyprogesterone) 11/24 16:22:00 CDT SP SP CPT-34955 Abx/Therapy Injection 16:22:00 CDT SP CPT-J1050 Depo Provera 150 mg (Medroxyprogesterone) 09/07 15:03:00 CHEESE SPRAYER SP SP CPT-55318 Abx/Therapy Injection 15:03:00 [employer] SP CPT-07710 Immunization Each Additional Inj 15:01:[address] SP CPT-76154 Immunization Single Admin 15:01:50 [employer] 2015 SP CPT-27847 Vaqta (2 dose - Ped/Adol) 15:01:50 [employer] 2015 SP CPT-06772 Gardasil 15:01:50 [employer] SP CPT-J1055 Depo-Provera Injection only 150mg 08:51:07 [employer] SP CPT-66000 Scoliosis w sup/erect 17:37:29 CDT SP
--- OUTSIDE RECORDS SUMMARY | 2019-06-03 16:58 | XMS REPORT | Clinical Summary ---
Author Author Admin, E POS Organization [facility] SP Address Unknown SP Phone Unavailable SP [...] CAPSULE 1 cap by mouth daily POS [id number] No Longer Active Tara Luli Active SP NEXPLANON 68 MG SUBCUTANEOUS IMPLANT ET ONOGESTREL [id number] SP Tara Luli Active SP DEPO-PROVERA 150 MG/ML INTRAMUSCULAR SUSPENSION 07/16 SP PRINCESS (CONTRACEP) 69449921205 No Longer Active Tara Rockwell Activ e SP IBUPROFEN 600 MG ORAL TABLET 1 tab po prn for back pain SP 82177387650 No Longer Active Aminta Schaefer MD Active SP DEPO-PROVERA 150 MG/ML INTRAMUSCULAR SUSPENSION one every 3 months SP PRINCESS (CONTRACEP) 63437872568 No Longer Active Aminta Schaefer MD A ctive SP BACTRIM DS 800-160 MG ORAL TABLET 1 po BID x 7 days 24/10/05 SP 62664007988 No Longer Active Bubba Rao MD Activ e SP AMOXICILLIN 500 MG ORAL CAPSULE 1 tab by mouth 3 times daily 201 12/11/21 SP AMOXICILLIN 31639544095 No Longer Active Javi Alexander MD Active SP FLONASE ALLERGY RELIEF 50 MCG/ACT NASAL SUSPENSION 2 SPRAYS EA NOSTRIL DAILY SP FLUTICASONE PROPIONATE 63707018235 No Longer Active Manisha DOSS MD Active SP AMOXICILLIN 500 MG ORAL CAPSULE 1 cap by mouth three times a day SP AMOXICILLIN 58646582171 No Longer Active Tara Garg APRN Active SP CYCLOBENZAPRINE HCL 10 MG ORAL TABLET Take 1/2 tab every evening SP HCL 41120948794 No Longer Active Ki FRAGA Activ e SP CYCLOBENZAPRINE HCL 10 MG ORAL TABLET Take 1/2 tab every evening SP HCL 10 MG ORAL TABLET 217513 CYCLOBENZAPRINE HCL Inactive SP FLONASE ALLERGY RELIEF 50 MCG/ACT NASAL SUSPENSION 2 SPRAYS EA NOSTRIL DAILY SP FLONASE ALLERGY RELIEF 50 MCG/ACT NASAL SUSPENSI ON 5461733 SP PROPIONATE Inactive SP DEPO-PROVERA 150 MG/ML INTRAMUSCULAR SUSPENSION one every 3 months SPPROVERA 150 MG/ML INTRAMUSCULAR SUSPENSION 8265337 MEDROXYPR OGEST PRINCESS SP Inactive SP IBUPROFEN 600 MG ORAL TABLET 1 tab po prn for back pain SP 600 MG ORAL TABLET 650076 IBUPROFEN Inactive SP DEPO-PROVERA 150 MG/ML INTRAMUSCULAR SUSPENSION 07/16 DEPO- SP 150 MG/ML INTRAMUSCULAR SUSPENSION 1682662 MEDROXYPROGEST PRINCESS ([place] NTRACEP) SP VITAMIN D-3 1000 UNIT ORAL CAPSULE 1 cap by mouth daily VITAMIN D-3 MC5238 UNIT ORAL CAPSULE CHOLECALCIFEROL Inactive SP AMOXICILLIN 500 MG ORAL CAPSULE 1 cap by mouth three times a day SP AMOXICILLIN 500 MG ORAL CAPSULE 210506 AMOXICILLIN Inactive SP AMOXICILLIN 500 MG ORAL CAPSULE 1 tab by mouth 3 times daily 201 12/11/21 SP AMOXICILLIN 500 MG ORAL CAPSULE 379569 AMOXICILLIN Inactive SP BACTRIM DS 800-160 MG ORAL TABLET 1 po BID x 7 days 24/10/05 SP DS 800-160 MG ORAL TABLET 290432 SULFAMETHOXAZOLE-TRIMETHOPRIM I nactive SP Advance Directives Directive [...] appearance, urine clear SP urine color yellow specific gravity, urine 1.030 SP pH, urine, semiquantitative 5.0 SP protein, urine, semiquantitative (dipstick) 3+ SP glucose, urine, semiquantitative negative ketones, urine, by test strip negative bilirubin, urine negative SP Encounters Code Encounter Date Provider Facility POS CPT-73310 Level 3 New Patient 16:31:45 PROCESS CONTROL PROGRAMMER Martha mcgovern MD [facility] CPT-33659 Level 3 Est. Patient 15:18:56 PROCESS CONTROL PROGRAMMER Aminta aleman MD [facility] CPT-62072 Level 3 New Patient 09:54:09 CDT Aminta crockett MD [facility] CPT-52411 Level 3 Est. Patient 16:13:04 CDT Bubba Rao MD [facility] CPT-51537 Level 3 Est. Patient 09:13:57 CDT Javi helton MD [facility] CPT-15494 Level 3 Est. Patient 19:39:38 PROCESS CONTROL PROGRAMMER Mona garcia [facility] Level 3 Est. Patient 16:36:36 PROCESS CONTROL PROGRAMMER Tara finley [facility]ASH [employer] [facility] CPT-59090 Level 3 Est. Patient 18:16:09 PROCESS CONTROL PROGRAMMER Ki FRAGA [facility]-90240 Level 3 Est. Patient 23:51:12 CDT Dru Matson [facility] Procedures Code Procedure Name Date Entry Date Standard Desc ription POS CPT-02651 71748 - Immun Admin each additional 1 3:29:02 PROCESS CONTROL PROGRAMMER SP SP CPT-05219 Havrix Adult (HepA) 10PK Syringe 13:29:[address] SP CPT-51402 96906 - Immun Admin 1 vac 13:29:02 PROCESS CONTROL PROGRAMMER 2018 SP CPT-67635 Bexsero (Meningococcal) 10PK Syringe 13:29:02 PROCESS CONTROL PROGRAMMER SP SP CPT-86170 Prv Med Est Pt 18-39yrs 12:06:42 PROCESS CONTROL PROGRAMMER 07/28 SP CPT-30371 Cystoscopy 16:31:45 PROCESS CONTROL PROGRAMMER SP CPT-J1050 Depo Provera 150 mg (Medroxyprogesterone) 07/16 16:14:20 PROCESS CONTROL PROGRAMMER SP SP CPT-17232 Abx/Therapy Injection 16:14:20 PROCESS CONTROL PROGRAMMER SP CPT-J1050 Depo Provera 150 mg (Medroxyprogesterone) 07/16 15:18:56 PROCESS CONTROL PROGRAMMER SP SP CPT-J1050 Depo Provera 150 mg (Medroxyprogesterone) 02/22 17:47:25 CDT SP SP CPT-89526 Abx/Therapy Injection 17:47:25 CDT SP CPT-J1050 Depo Provera 150 mg (Medroxyprogesterone) 11/29 15:01:13 CDT SP SP CPT-10636 Abx/Therapy Injection 15:01:13 CDT SP CPT-J1050 Depo Provera 150 mg (Medroxyprogesterone) 09/12 15:43:44 PROCESS CONTROL PROGRAMMER SP SP CPT-48897 Abx/Therapy Injection 15:43:43 PROCESS CONTROL PROGRAMMER SP CPT-J1050 Depo Provera 150 mg (Medroxyprogesterone) 08/20 15:27:07 PROCESS CONTROL PROGRAMMER SP CPT-76857 Abx/Therapy Injection 15:27:07 PROCESS CONTROL PROGRAMMER SP CPT-J1050 Depo Provera 150 mg (Medroxyprogesterone) 04/04 14:51:55 CDT SP CPT-15965 Abx/Therapy Injection 14:51:55 CDT SP CPT-J1050 Depo Provera 150 mg (Medroxyprogesterone) 01/06 16:36:56 CDT [facility] CPT-80681 Abx/Therapy Injection 16:36:56 CDT SP CPT-31858 Administration 2+ single or combination vaccines inc oral SP CDT SP CPT-11548 Meningococcal B, OMV vaccine 17:00:43 CDT 2 SP CPT-77489 First Vx - Ix admin via ID I M or jet injects without counseling by SP 17:00:43 CDT SP CPT-76823 Menveo Intramuscular Solution Reconstituted 2016 17:00:41 CDT [facility] CPT-28151 Scoliosis 1 view - XRAY USE ONLY 15:43:41 C DT SP CPT-PV Prev. Care Visit 15:17:45 CDT SP CPT-J1050 Depo Provera 150 mg (Medroxyprogesterone) 10/17 15:23:30 CDT SP CPT-79908 Abx/Therapy Injection 15:23:30 CDT SP CPT-J1050 Depo Provera 150 mg (Medroxyprogesterone) 10/17 09:54:10 CDT [facility] CPT-J1050 Depo Provera 150 mg (Medroxyprogesterone) 07/20 15:55:07 PROCESS CONTROL PROGRAMMER SP CPT-88328 Abx/Therapy Injection 15:55:07 PROCESS CONTROL PROGRAMMER SP CPT-J1050 Depo Provera 150 mg (Medroxyprogesterone) 07/20 14:13:45 PROCESS CONTROL PROGRAMMER SP SP CPT-J1050 Depo Provera 150 mg (Medroxyprogesterone) 17:31:27 CDT SP SP CPT-84533 Abx/Therapy Injection 17:31:27 CDT SP CPT-J1050 Depo Provera 150 mg (Medroxyprogesterone) 08:47:12 CDT SP SP CPT-J1050 Depo Provera 150 mg (Medroxyprogesterone) 02/09 14:41:46 CDT SP SP CPT-J1050 Depo Provera 150 mg (Medroxyprogesterone) 02/08 10:57:18 CDT SP SP CPT-J1050 Depo Provera 150 mg (Medroxyprogesterone) 11/24 16:22:00 CDT SP SP CPT-31961 Abx/Therapy Injection 16:22:00 CDT SP CPT-J1050 Depo Provera 150 mg (Medroxyprogesterone) 09/07 15:03:00 PROCESS CONTROL PROGRAMMER SP SP CPT-80115 Abx/Therapy Injection 15:03:00 PROCESS CONTROL PROGRAMMER SP CPT-76536 Immunization Each Additional Inj 15:01:[address] SP CPT-14408 Immunization Single Admin 15:01:50 PROCESS CONTROL PROGRAMMER 2015 SP CPT-91153 Vaqta (2 dose - Ped/Adol) 15:01:50 PROCESS CONTROL PROGRAMMER 2015 SP CPT-36465 Gardasil 15:01:50 PROCESS CONTROL PROGRAMMER SP CPT-J1055 Depo-Provera Injection only 150mg 08:51:07 PROCESS CONTROL PROGRAMMER SP CPT-84233 Scoliosis w sup/erect 17:37:29 CDT SP
--- OUTSIDE RECORDS SUMMARY | 2019-06-03 16:59 | XMS REPORT | Clinical Summary ---
Author Author Admin, SAPNA POS Organization [facility] SP Address Unknown SP Phone Unavailable SP [...] Rao MD Dysuria SP Contraceptive management V25.09 Active Aminta aleman MD SP for other general counseling and advice on contraceptive management SP Irregular menses 626.4 Active Aminta Schaefer [...] SP Gross hematuria 597.1 Active Martha DOSS Sports physical ICD-V70.3 Inactive Bubba gibson MD SP SP Sore throat ICD-462 Inactive Bubba Rao MD SP SP Otitis media - left ICD-382.9 Inactive Bubba DOSS SP Contraceptive counseling ICD-V25.09 Inactive Bubba DOSS MD SP UTI ICD-599.0 Inactive Bubba Rao MD 2016 SP Contraception management ICD-V25.09 Inactive Bubba DOSS MD SP Dysuria ICD-788.1 Inactive Bubba Rao MD 2016 SP SCOLIOSIS ICD-737.30 Inactive Bubba DOSS SP Medication List Medication Instructions Start Date Stop Date Generic Name NDC Status Provider POS Instruction VITAMIN D-3 1000 UNIT ORAL CAPSULE 1 cap by mouth daily CHOLECALCIFEROL POS Active Martha Sorto MD Active SP DEPO-PROVERA 150 MG/ML INTRAMUSCULAR SUSPENSION 07/16 MEDROXYPROGEST SP (CONTRACEP) 16061762145 Active Tara Luli Active SP IBUPROFEN 600 MG ORAL TABLET 1 tab po prn for back pain SP 40441885505 No Longer Active Aminta Schaefer MD Active SP DEPO-PROVERA 150 MG/ML INTRAMUSCULAR SUSPENSION one every 3 months SP PRINCESS (CONTRACEP) 31725769942 No Longer Active Aminta Michaels ctive SP BACTRIM DS 800-160 MG ORAL TABLET 1 po BID x 7 days 20 24/10/05 SP 34746778589 No Longer Active Bubba Rao MD Activ e SP AMOXICILLIN 500 MG ORAL CAPSULE 1 tab by mouth 3 times daily 201 12/11/21 SP AMOXICILLIN 02301453177 No Longer Active Javi Alexander MD Active SP FLONASE ALLERGY RELIEF 50 MCG/ACT NASAL SUSPENSION 2 SPRAYS EA NOSTRIL DAILY SP FLUTICASONE PROPIONATE 53237988735 No Longer Active Manisha DOSS MD Active SP AMOXICILLIN 500 MG ORAL CAPSULE 1 cap by mouth three times a day SP AMOXICILLIN 05093964244 No Longer Active Tara Garg APRN Active SP CYCLOBENZAPRINE HCL 10 MG ORAL TABLET Take 1/2 tab every evening SP HCL 96649244780 No Longer Active Ki FRAGA Activ e SP CYCLOBENZAPRINE HCL 10 MG ORAL TABLET Take 1/2 tab every evening SP HCL 10 MG ORAL TABLET 336221 CYCLOBENZAPRINE HCL Inactive SP FLONASE ALLERGY RELIEF 50 MCG/ACT NASAL SUSPENSION 2 SPRAYS EA NOSTRIL DAILY SP FLONASE ALLERGY RELIEF 50 MCG/ACT NASAL SUSPENSI ON 0394407 SP PROPIONATE Inactive SP DEPO-PROVERA 150 MG/ML INTRAMUSCULAR SUSPENSION one every 3 months SPPROVERA 150 MG/ML INTRAMUSCULAR SUSPENSION 5057141 MEDROXYPR OGEST PRINCESS SP Inactive SP IBUPROFEN 600 MG ORAL TABLET 1 tab po prn for back pain SP 600 MG ORAL TABLET 373238 IBUPROFEN Inactive SP AMOXICILLIN 500 MG ORAL CAPSULE 1 cap by mouth three times a day SP AMOXICILLIN 500 MG ORAL CAPSULE 756943 AMOXICILLIN Inactive SP AMOXICILLIN 500 MG ORAL CAPSULE 1 tab by mouth 3 times daily 201 12/11/21 SP AMOXICILLIN 500 MG ORAL CAPSULE 505178 AMOXICILLIN Inactive SP BACTRIM DS 800-160 MG ORAL TABLET 1 po BID x 7 days 20 24/10/05 SP DS 800-160 MG ORAL TABLET 604668 SULFAMETHOXAZOLE-TRIMETHOPRIM I nactive SP Advance Directives Directive Description Start Date POS PERMISSION TO SHARE SP Vital Signs Date Name Value Unit Range Description POS blood pressure, diastolic, repeated by physician 87 BP diggs SP blood pressure, diastolic 87 mm[Hg] BP diggs SP blood pressure, systolic, repeated by physician 120 BP sys blood pressure, systolic 120 mm[Hg] BP sys SP height E&M 64 [in_us] Bdy height SP pulse rate E&M 131 /min Heart rate SP temperature E&M 99.4 [degF] Body temp erature weight E&M 99 [lb_av] Weight Measure d blood pressure, diastolic 74 mm[Hg] BP diggs SP blood pressure, systolic 115 mm[Hg] BP sys SP height E&M 64 [in_us] Bdy height pulse rate E&M 126 /min Heart rate temperature E&M 99.4 [degF] Body temp erature weight E&M 97.20 [lb_av] Weight Measure d SP Diagnostic Results Date Name Value Unit Range Description POS Lab Report: Chlamydia/GC APTIMA/80117 - Lab SP chlamydia DNA probe NOT DETECTED NOT DETECTED SP Lab Report: Chlamydia/GC APTIMA/16763 - Microbiology Neisseria gonorrhoeae DNA probe NOT DETECTED NO T DETECTED SP Office Visit: CN-hematuria with nagative CT scan - Chemistry RBC, urine, dipstick 3+ SP Office Visit: CN-hematuria with nagative CT scan - Urinalysis nitrite, urine, semiquantitative negative urobilinogen, urine, semiquantitative (dipstick) 0.2 SP leukocyte esterase, urine, by dipstick negative SP appearance, urine clear SP urine color yellow SP specific gravity, urine 1.030 SP pH, urine, semiquantitative 5.0 SP protein, urine, semiquantitative (dipstick) 3+ glucose, urine, semiquantitative negative SP ketones, urine, by test strip negative bilirubin, urine negative SP Encounters Code Encounter Date Provider Facility POS CPT-90434 Level 3 New Patient 16:31:45 RESIDUE FURNACE OPERATOR Martha mcgovern MD [facility]-13658 Level 3 Est. Patient 15:18:56 RESIDUE FURNACE OPERATOR Aminta aleman MD [facility] CPT-96242 Level 3 New Patient 09:54:09 CDT Aminta crockett MD [facility] CPT-88469 Level 3 Est. Patient 16:13:04 CDT Bubba Rao MD [facility]-46250 Level 3 Est. Patient 09:13:57 CDT Javi helton MD [facility] CPT-87565 Level 3 Est. Patient 19:39:38 RESIDUE FURNACE OPERATOR Mona garcia [facility]-87675 Level 3 Est. Patient 16:36:36 RESIDUE FURNACE OPERATOR Tara finley [facility]-30947 Level 3 Est. Patient 18:16:09 RESIDUE FURNACE OPERATOR Ki FRAGA [facility] CPT-47183 Level 3 Est. Patient 23:51:12 CDT Dru jacobs DO [facility] Procedures Code Procedure Name Date Entry Date Standard Desc ription POS CPT-41261 Cystoscopy 16:31:45 RESIDUE FURNACE OPERATOR CPT-J1050 Depo Provera 150 mg (Medroxyprogesterone) 07/16 16:14:20 RESIDUE FURNACE OPERATOR [facility] CPT-09828 Abx/Therapy Injection 16:14:20 RESIDUE FURNACE OPERATOR CPT-J1050 Depo Provera 150 mg (Medroxyprogesterone) 07/16 15:18:56 RESIDUE FURNACE OPERATOR [facility] CPT-J1050 Depo Provera 150 mg (Medroxyprogesterone) 02/22 17:47:25 CDT [facility] CPT-71546 Abx/Therapy Injection 17:47:25 CDT SP CPT-J1050 Depo Provera 150 mg (Medroxyprogesterone) 11/29 15:01:13 CDT SP SP CPT-16645 Abx/Therapy Injection 15:01:13 CDT SP CPT-J1050 Depo Provera 150 mg (Medroxyprogesterone) 09/12 15:43:44 RESIDUE FURNACE OPERATOR SP CPT-54126 Abx/Therapy Injection 15:43:43 RESIDUE FURNACE OPERATOR SP CPT-J1050 Depo Provera 150 mg (Medroxyprogesterone) 08/20 15:27:07 RESIDUE FURNACE OPERATOR SP CPT-11163 Abx/Therapy Injection 15:27:07 RESIDUE FURNACE OPERATOR SP CPT-J1050 Depo Provera 150 mg (Medroxyprogesterone) 04/04 14:51:55 CDT [facility] CPT-00511 Abx/Therapy Injection 14:51:55 CDT SP CPT-J1050 Depo Provera 150 mg (Medroxyprogesterone) 01/06 16:36:56 CDT [facility] CPT-43989 Abx/Therapy Injection 16:36:56 CDT SP CPT-98929 Administration 2+ single or combination vaccines inc oral SP CDT SP CPT-52197 Meningococcal B, OMV vaccine 17:00:43 CDT 2 SP CPT-26091 First Vx - Ix admin via ID I M or jet injects without counseling by SP 17:00:43 CDT SP CPT-41456 Menveo Intramuscular Solution Reconstituted 2016 17:00:41 CDT SP SP CPT-73983 Scoliosis 1 view - XRAY USE ONLY 15:43:41 C DT SP CPT-PV Prev. Care Visit 15:17:45 CDT SP CPT-J1050 Depo Provera 150 mg (Medroxyprogesterone) 10/17 15:23:30 CDT SP SP CPT-71140 Abx/Therapy Injection 15:23:30 CDT SP CPT-J1050 Depo Provera 150 mg (Medroxyprogesterone) 10/17 09:54:10 CDT SP SP CPT-J1050 Depo Provera 150 mg (Medroxyprogesterone) 07/20 15:55:07 RESIDUE FURNACE OPERATOR SP SP CPT-92359 Abx/Therapy Injection 15:55:07 RESIDUE FURNACE OPERATOR SP CPT-J1050 Depo Provera 150 mg (Medroxyprogesterone) 07/20 14:13:45 RESIDUE FURNACE OPERATOR SP SP CPT-J1050 Depo Provera 150 mg (Medroxyprogesterone) 17:31:27 CDT SP SP CPT-81987 Abx/Therapy Injection 17:31:27 CDT SP CPT-J1050 Depo Provera 150 mg (Medroxyprogesterone) 08:47:12 CDT SP SP CPT-J1050 Depo Provera 150 mg (Medroxyprogesterone) 02/09 14:41:46 CDT SP SP CPT-J1050 Depo Provera 150 mg (Medroxyprogesterone) 02/08 10:57:18 CDT SP SP CPT-J1050 Depo Provera 150 mg (Medroxyprogesterone) 11/24 16:22:00 CDT SP SP CPT-22625 Abx/Therapy Injection 16:22:00 CDT SP CPT-J1050 Depo Provera 150 mg (Medroxyprogesterone) 09/07 15:03:00 RESIDUE FURNACE OPERATOR SP SP CPT-54969 Abx/Therapy Injection 15:03:00 RESIDUE FURNACE OPERATOR SP CPT-48325 Immunization Each Additional Inj 15:01:[address] SP CPT-08176 Immunization Single Admin 15:01:50 RESIDUE FURNACE OPERATOR 2015 SP CPT-03409 Vaqta (2 dose - Ped/Adol) 15:01:50 RESIDUE FURNACE OPERATOR 2015 SP CPT-32544 Gardasil 15:01:50 RESIDUE FURNACE OPERATOR SP CPT-J1055 Depo-Provera Injection only 150mg 08:51:07 RESIDUE FURNACE OPERATOR SP CPT-55268 Scoliosis w sup/erect 17:37:29 CDT SP
--- OUTSIDE RECORDS SUMMARY | 2019-06-03 16:59 | XMS REPORT | Clinical Summary ---
Author Author Admin, SAPNA POS Organization [facility] SP Address Unknown SP Phone Unavailable SP [...] MG/ML INTRAMUSCULAR SUSPENSION 07/16 MEDROXYPROGEST SP (CONTRACEP) 39120516758 Active Tara Luil Active SP IBUPROFEN 600 MG ORAL TABLET 1 tab po prn for back pain SP 49784234580 No Longer Active Aminta Schaefer MD Active SP DEPO-PROVERA 150 MG/ML INTRAMUSCULAR SUSPENSION one every 3 months SP PRINCESS (CONTRACEP) 77691521922 No Longer Active Aminta Michaels ctive SP BACTRIM DS 800-160 MG ORAL TABLET 1 po BID x 7 days 20 24/10/05 SP 71263404405 No Longer Active Bubba Rao MD Activ e SP AMOXICILLIN 500 MG ORAL CAPSULE 1 tab by mouth 3 times daily 201 12/11/21 SP AMOXICILLIN 10504653278 No Longer Active Javi Alexander MD Active SP FLONASE ALLERGY RELIEF 50 MCG/ACT NASAL SUSPENSION 2 SPRAYS EA NOSTRIL DAILY SP FLUTICASONE PROPIONATE 84288803416 No Longer Active Manisha DOSS MD Active SP AMOXICILLIN 500 MG ORAL CAPSULE 1 cap by mouth three times a day SP AMOXICILLIN 61678818075 No Longer Active Tara Garg APRN Active SP CYCLOBENZAPRINE HCL 10 MG ORAL TABLET Take 1/2 tab every evening SP HCL 45253915784 No Longer Active Ki FRAGA Activ e SP CYCLOBENZAPRINE HCL 10 MG ORAL TABLET Take 1/2 tab every evening SP HCL 10 MG ORAL TABLET 338335 CYCLOBENZAPRINE HCL Inactive SP FLONASE ALLERGY RELIEF 50 MCG/ACT NASAL SUSPENSION 2 SPRAYS EA NOSTRIL DAILY SP FLONASE ALLERGY RELIEF 50 MCG/ACT NASAL SUSPENSI ON 5554123 SP PROPIONATE Inactive SP DEPO-PROVERA 150 MG/ML INTRAMUSCULAR SUSPENSION one every 3 months SPPROVERA 150 MG/ML INTRAMUSCULAR SUSPENSION 3912713 MEDROXYPR OGEST PRINCESS SP Inactive SP IBUPROFEN 600 MG ORAL TABLET 1 tab po prn for back pain SP 600 MG ORAL TABLET 749342 IBUPROFEN Inactive SP AMOXICILLIN 500 MG ORAL CAPSULE 1 cap by mouth three times a day SP AMOXICILLIN 500 MG ORAL CAPSULE 814070 AMOXICILLIN Inactive SP AMOXICILLIN 500 MG ORAL CAPSULE 1 tab by mouth 3 times daily 201 12/11/21 SP AMOXICILLIN 500 MG ORAL CAPSULE 692437 AMOXICILLIN Inactive SP BACTRIM DS 800-160 MG ORAL TABLET 1 po BID x 7 days 20 24/10/05 SP DS 800-160 MG ORAL TABLET 472592 SULFAMETHOXAZOLE-TRIMETHOPRIM I nactive SP Advance Directives Directive [...] Unit Range Description POS Lab Report: Chlamydia/GC [facility]TIM[facility]/87646 - Lab SP chlamydia DNA probe NOT DETECTED NOT DETECTED SP Lab Report: Chlamydia/GC [facility]TIMA/08253 - Microbiology Neisseria gonorrhoeae DNA probe NOT [...] Encounters Code Encounter Date Provider Facility POS CPT-45342 Level 3 New Patient 16:31:45 CROZE CUTTER Martha mcgovern MD [facility]-95962 Level 3 Est. Patient 15:18:56 CROZE CUTTER Aminta aleman MD [facility] CPT-62907 Level 3 New Patient 09:54:09 CDT Aminta crockett MD [facility] CPT-47026 Level 3 Est. Patient 16:13:04 CDT Bubba Rao MD [facility]-52367 Level 3 Est. Patient 09:13:57 CDT Javi helton MD [facility] CPT-09749 Level 3 Est. Patient 19:39:38 CROZE CUTTER Mona garcia [facility]-56734 Level 3 Est. Patient 16:36:36 CROZE CUTTER Tara finley [facility]-85237 Level 3 Est. Patient 18:16:09 CROZE CUTTER Ki FRAGA [facility] CPT-71386 Level 3 Est. Patient 23:51:12 CDT Dru jacobs DO [facility] Procedures Code Procedure Name Date Entry Date Standard Desc ription POS CPT-28239 Cystoscopy 16:31:45 CROZE CUTTER CPT-J1050 Depo Provera 150 mg (Medroxyprogesterone) 07/16 16:14:20 CROZE CUTTER [facility] CPT-79584 Abx/Therapy Injection 16:14:20 CROZE CUTTER CPT-J1050 Depo Provera 150 mg (Medroxyprogesterone) 07/16 15:18:56 CROZE CUTTER [facility] CPT-J1050 Depo Provera 150 mg (Medroxyprogesterone) 02/22 17:47:25 CDT [facility] CPT-61639 Abx/Therapy Injection 17:47:25 CDT SP CPT-J1050 Depo Provera 150 mg (Medroxyprogesterone) 11/29 15:01:13 CDT SP SP CPT-78780 Abx/Therapy Injection 15:01:13 CDT SP CPT-J1050 Depo Provera 150 mg (Medroxyprogesterone) 09/12 15:43:44 CROZE CUTTER SP CPT-04983 Abx/Therapy Injection 15:43:43 CROZE CUTTER SP CPT-J1050 Depo Provera 150 mg (Medroxyprogesterone) 08/20 15:27:07 CROZE CUTTER SP CPT-21018 Abx/Therapy Injection 15:27:07 CROZE CUTTER SP CPT-J1050 Depo Provera 150 mg (Medroxyprogesterone) 04/04 14:51:55 CDT [facility] CPT-58249 Abx/Therapy Injection 14:51:55 CDT SP CPT-J1050 Depo Provera 150 mg (Medroxyprogesterone) 01/06 16:36:56 CDT [facility] CPT-30459 Abx/Therapy Injection 16:36:56 CDT SP CPT-18487 Administration 2+ single or combination vaccines inc oral SP CDT SP CPT-75254 Meningococcal B, OMV vaccine 17:00:43 CDT 2 SP CPT-39958 First Vx - Ix admin via ID I M or jet injects without counseling by SP 17:00:43 CDT SP CPT-88490 Menveo Intramuscular Solution Reconstituted 2016 17:00:41 CDT SP SP CPT-20679 Scoliosis 1 view - XRAY USE ONLY 15:43:41 C DT SP CPT-PV Prev. Care Visit 15:17:45 CDT SP CPT-J1050 Depo Provera 150 mg (Medroxyprogesterone) 10/17 15:23:30 CDT SP SP CPT-72647 Abx/Therapy Injection 15:23:30 CDT SP CPT-J1050 Depo Provera 150 mg (Medroxyprogesterone) 10/17 09:54:10 CDT SP SP CPT-J1050 Depo Provera 150 mg (Medroxyprogesterone) 07/20 15:55:07 CROZE CUTTER SP SP CPT-91039 Abx/Therapy Injection 15:55:07 CROZE CUTTER SP CPT-J1050 Depo Provera 150 mg (Medroxyprogesterone) 07/20 14:13:45 CROZE CUTTER SP SP CPT-J1050 Depo Provera 150 mg (Medroxyprogesterone) 17:31:27 CDT SP SP CPT-52249 Abx/Therapy Injection 17:31:27 CDT SP CPT-J1050 Depo Provera 150 mg (Medroxyprogesterone) 08:47:12 CDT SP SP CPT-J1050 Depo Provera 150 mg (Medroxyprogesterone) 02/09 14:41:46 CDT SP SP CPT-J1050 Depo Provera 150 mg (Medroxyprogesterone) 02/08 10:57:18 CDT SP SP CPT-J1050 Depo Provera 150 mg (Medroxyprogesterone) 11/24 16:22:00 CDT SP SP CPT-44680 Abx/Therapy Injection 16:22:00 CDT SP CPT-J1050 Depo Provera 150 mg (Medroxyprogesterone) 09/07 15:03:00 CROZE CUTTER SP SP CPT-30042 Abx/Therapy Injection 15:03:00 CROZE CUTTER SP CPT-30729 Immunization Each Additional Inj 15:01:[address] SP CPT-08822 Immunization Single Admin 15:01:50 CROZE CUTTER 2015 SP CPT-70496 Vaqta (2 dose - Ped/Adol) 15:01:50 CROZE CUTTER 2015 SP CPT-12721 Gardasil 15:01:50 CROZE CUTTER SP CPT-J1055 Depo-Provera Injection only 150mg 08:51:07 CROZE CUTTER SP CPT-18788 Scoliosis w sup/erect 17:37:29 CDT SP
--- OUTSIDE RECORDS SUMMARY | 2019-06-03 16:59 | XMS REPORT | Clinical Summary ---
Author Author Admin, SAPNA POS Organization [facility] SP Address Unknown SP Phone Unavailable [...] SP Gross hematuria 597.1 Active Martha DOSS SCOLIOSIS ICD-737.30 Inactive Bubba DOSS SP Sports physical ICD-V70.3 Inactive Bubba DOSS SP Sore throat ICD-462 Inactive Bubba Rao MD SP SP Otitis media - left ICD-382.9 Inactive Bubba Rao MD SP SP Contraceptive counseling ICD-V25.09 Inactive Bubba DOSS [...] MG/ML INTRAMUSCULAR SUSPENSION 07/16 MEDROXYPROGEST SP (CONTRACEP) 46330858959 Active Tara Luli Active SP IBUPROFEN 600 MG ORAL TABLET 1 tab po prn for back pain SP 75622748913 No Longer Active Aminta Schaefer MD Active SP DEPO-PROVERA 150 MG/ML INTRAMUSCULAR SUSPENSION one every 3 months SP PRINCESS (CONTRACEP) 47501636644 No Longer Active Aminta Michaels ctive SP BACTRIM DS 800-160 MG ORAL TABLET 1 po BID x 7 days 20 24/10/05 SP 18976341505 No Longer Active Bubba Rao MD Activ e SP AMOXICILLIN 500 MG ORAL CAPSULE 1 tab by mouth 3 times daily 201 12/11/21 SP AMOXICILLIN 13966838235 No Longer Active Javi Alexander MD Active SP FLONASE ALLERGY RELIEF 50 MCG/ACT NASAL SUSPENSION 2 SPRAYS EA NOSTRIL DAILY SP FLUTICASONE PROPIONATE 08590927271 No Longer Active Manisha DOSS MD Active SP AMOXICILLIN 500 MG ORAL CAPSULE 1 cap by mouth three times a day SP AMOXICILLIN 58486562675 No Longer Active Tara Garg APRN Active SP CYCLOBENZAPRINE HCL 10 MG ORAL TABLET Take 1/2 tab every evening SP HCL 06285451043 No Longer Active Ki FRAGA Activ e SP CYCLOBENZAPRINE HCL 10 MG ORAL TABLET Take 1/2 tab every evening SP HCL 10 MG ORAL TABLET 823158 CYCLOBENZAPRINE HCL Inactive SP FLONASE ALLERGY RELIEF 50 MCG/ACT NASAL SUSPENSION 2 SPRAYS EA NOSTRIL DAILY SP FLONASE ALLERGY RELIEF 50 MCG/ACT NASAL SUSPENSI ON 6257819 SP PROPIONATE Inactive SP DEPO-PROVERA 150 MG/ML INTRAMUSCULAR SUSPENSION one every 3 months SPPROVERA 150 MG/ML INTRAMUSCULAR SUSPENSION 1882362 MEDROXYPR OGEST PRINCESS SP Inactive SP IBUPROFEN 600 MG ORAL TABLET 1 tab po prn for back pain SP 600 MG ORAL TABLET 002069 IBUPROFEN Inactive SP AMOXICILLIN 500 MG ORAL CAPSULE 1 cap by mouth three times a day SP AMOXICILLIN 500 MG ORAL CAPSULE 965652 AMOXICILLIN Inactive SP AMOXICILLIN 500 MG ORAL CAPSULE 1 tab by mouth 3 times daily 201 12/11/21 SP AMOXICILLIN 500 MG ORAL CAPSULE 941533 AMOXICILLIN Inactive SP BACTRIM DS 800-160 MG ORAL TABLET 1 po BID x 7 days 20 24/10/05 SP DS 800-160 MG ORAL TABLET 734873 SULFAMETHOXAZOLE-TRIMETHOPRIM I nactive SP Advance Directives Directive [...] Unit Range Description POS Lab Report: Chlamydia/GC APTIMA/22331 - Lab SP chlamydia DNA probe NOT DETECTED NOT DETECTED SP Lab Report: Chlamydia/GC APTIMA/30450 - Microbiology Neisseria gonorrhoeae DNA probe NOT [...] Encounters Code Encounter Date Provider Facility POS CPT-01645 Level 3 New Patient 16:31:45 [employer] WORK[employer] Martha mcgovern MD [facility]-01090 Level 3 Est. Patient 15:18:56 [employer] WORKER Aminta aleman MD [facility] CPT-61317 Level 3 New Patient 09:54:09 CDT Aminta crockett MD [facility] CPT-98558 Level 3 Est. Patient 16:13:04 CDT Bubba Rao MD [facility]-00100 Level 3 Est. Patient 09:13:57 CDT Javi helton MD [facility] CPT-20972 Level 3 Est. Patient 19:39:38 [employer] WORKER Mona garcia [facility]-03779 Level 3 Est. Patient 16:36:36 [employer] WORKER Tara finley [facility]-35868 Level 3 Est. Patient 18:16:09 [employer] WORKER Ki FRAGA [facility] CPT-95631 Level 3 Est. Patient 23:51:12 CDT Dru jacobs DO [facility] Procedures Code Procedure Name Date Entry Date Standard Desc ription POS CPT-66758 Cystoscopy 16:31:45 [employer] WORK[employer] CPT-J1050 Depo Provera 150 mg (Medroxyprogesterone) 07/16 16:14:20 [employer] WORKER [facility] CPT-56206 Abx/Therapy Injection 16:14:20 [employer] WORK[employer] CPT-J1050 Depo Provera 150 mg (Medroxyprogesterone) 07/16 15:18:56 [employer] WORKER [facility] CPT-J1050 Depo Provera 150 mg (Medroxyprogesterone) 02/22 17:47:25 CDT [facility] CPT-88237 Abx/Therapy Injection 17:47:25 CDT SP CPT-J1050 Depo Provera 150 mg (Medroxyprogesterone) 11/29 15:01:13 CDT SP SP CPT-90040 Abx/Therapy Injection 15:01:13 CDT SP CPT-J1050 Depo Provera 150 mg (Medroxyprogesterone) 09/12 15:43:44 [employer] WORKER SP CPT-46682 Abx/Therapy Injection 15:43:43 [employer] WORKER SP CPT-J1050 Depo Provera 150 mg (Medroxyprogesterone) 08/20 15:27:07 [employer] WORKER SP CPT-87540 Abx/Therapy Injection 15:27:07 [employer] WORKER SP CPT-J1050 Depo Provera 150 mg (Medroxyprogesterone) 04/04 14:51:55 CDT [facility] CPT-85623 Abx/Therapy Injection 14:51:55 CDT SP CPT-J1050 Depo Provera 150 mg (Medroxyprogesterone) 01/06 16:36:56 CDT [facility] CPT-47903 Abx/Therapy Injection 16:36:56 CDT SP CPT-70336 Administration 2+ single or combination vaccines inc oral SP CDT SP CPT-45346 Meningococcal B, OMV vaccine 17:00:43 CDT 2 SP CPT-61626 First Vx - Ix admin via ID I M or jet injects without counseling by SP 17:00:43 CDT SP CPT-70703 Menveo Intramuscular Solution Reconstituted 2016 17:00:41 CDT SP SP CPT-65181 Scoliosis 1 view - XRAY USE ONLY 15:43:41 C DT SP CPT-PV Prev. Care Visit 15:17:45 CDT SP CPT-J1050 Depo Provera 150 mg (Medroxyprogesterone) 10/17 15:23:30 CDT SP SP CPT-54700 Abx/Therapy Injection 15:23:30 CDT SP CPT-J1050 Depo Provera 150 mg (Medroxyprogesterone) 10/17 09:54:10 CDT SP SP CPT-J1050 Depo Provera 150 mg (Medroxyprogesterone) 07/20 15:55:07 [employer] WORK[employer] SP SP CPT-06960 Abx/Therapy Injection 15:55:07 [employer] WORKER SP CPT-J1050 Depo Provera 150 mg (Medroxyprogesterone) 07/20 14:13:45 [employer] WORKER SP SP CPT-J1050 Depo Provera 150 mg (Medroxyprogesterone) 17:31:27 CDT SP SP CPT-44828 Abx/Therapy Injection 17:31:27 CDT SP CPT-J1050 Depo Provera 150 mg (Medroxyprogesterone) 08:47:12 CDT SP SP CPT-J1050 Depo Provera 150 mg (Medroxyprogesterone) 02/09 14:41:46 CDT SP SP CPT-J1050 Depo Provera 150 mg (Medroxyprogesterone) 02/08 10:57:18 CDT SP SP CPT-J1050 Depo Provera 150 mg (Medroxyprogesterone) 11/24 16:22:00 CDT SP SP CPT-27815 Abx/Therapy Injection 16:22:00 CDT SP CPT-J1050 Depo Provera 150 mg (Medroxyprogesterone) 09/07 15:03:00 [employer] WORK[employer] SP SP CPT-33031 Abx/Therapy Injection 15:03:00 [employer] WORKER SP CPT-72612 Immunization Each Additional Inj 15:01:[address] SP CPT-31874 Immunization Single Admin 15:01:50 [employer] WORKER 2015 SP CPT-26253 Vaqta (2 dose - Ped/Adol) 15:01:50 [employer] WORKER 2015 SP CPT-17633 Gardasil 15:01:50 [employer] WORKER SP CPT-J1055 Depo-Provera Injection only 150mg 08:51:07 [employer] WORK[employer] SP CPT-82947 Scoliosis w sup/erect 17:37:29 CDT SP
--- OUTSIDE RECORDS SUMMARY | 2019-06-03 17:00 | XMS REPORT | Clinical Summary ---
Author Author Admin, SAPNA POS Organization [facility] SP Address Unknown SP Phone Unavailable SP [...] MG/ML INTRAMUSCULAR SUSPENSION 07/16 MEDROXYPROGEST SP (CONTRACEP) 60978900844 Active Tara Luli Active SP IBUPROFEN 600 MG ORAL TABLET 1 tab po prn for back pain SP 14674039612 No Longer Active Aminta Schaefer MD Active SP DEPO-PROVERA 150 MG/ML INTRAMUSCULAR SUSPENSION one every 3 months SP PRINCESS (CONTRACEP) 97007760481 No Longer Active Aminta Michaels ctive SP BACTRIM DS 800-160 MG ORAL TABLET 1 po BID x 7 days 20 24/10/05 SP 36333816554 No Longer Active Bubba Rao MD Activ e SP AMOXICILLIN 500 MG ORAL CAPSULE 1 tab by mouth 3 times daily 201 12/11/21 SP AMOXICILLIN 60195013404 No Longer Active Javi Alexander MD Active SP FLONASE ALLERGY RELIEF 50 MCG/ACT NASAL SUSPENSION 2 SPRAYS EA NOSTRIL DAILY SP FLUTICASONE PROPIONATE 49443708233 No Longer Active Manisha DOSS MD Active SP AMOXICILLIN 500 MG ORAL CAPSULE 1 cap by mouth three times a day SP AMOXICILLIN 35404589030 No Longer Active Tara Garg APRN Active SP CYCLOBENZAPRINE HCL 10 MG ORAL TABLET Take 1/2 tab every evening SP HCL 72036332038 No Longer Active Ki FRAGA Activ e SP CYCLOBENZAPRINE HCL 10 MG ORAL TABLET Take 1/2 tab every evening SP HCL 10 MG ORAL TABLET 061996 CYCLOBENZAPRINE HCL Inactive SP FLONASE ALLERGY RELIEF 50 MCG/ACT NASAL SUSPENSION 2 SPRAYS EA NOSTRIL DAILY SP FLONASE ALLERGY RELIEF 50 MCG/ACT NASAL SUSPENSI ON 5726600 SP PROPIONATE Inactive SP DEPO-PROVERA 150 MG/ML INTRAMUSCULAR SUSPENSION one every 3 months SPPROVERA 150 MG/ML INTRAMUSCULAR SUSPENSION 1546244 MEDROXYPR OGEST PRINCESS SP Inactive SP IBUPROFEN 600 MG ORAL TABLET 1 tab po prn for back pain SP 600 MG ORAL TABLET 846186 IBUPROFEN Inactive SP AMOXICILLIN 500 MG ORAL CAPSULE 1 cap by mouth three times a day SP AMOXICILLIN 500 MG ORAL CAPSULE 337808 AMOXICILLIN Inactive SP AMOXICILLIN 500 MG ORAL CAPSULE 1 tab by mouth 3 times daily 201 12/11/21 SP AMOXICILLIN 500 MG ORAL CAPSULE 410121 AMOXICILLIN Inactive SP BACTRIM DS 800-160 MG ORAL TABLET 1 po BID x 7 days 20 24/10/05 SP DS 800-160 MG ORAL TABLET 778184 SULFAMETHOXAZOLE-TRIMETHOPRIM I nactive SP Advance Directives Directive [...] Unit Range Description POS Lab Report: Chlamydia/GC APTIMA/14747 - Lab SP chlamydia DNA probe NOT DETECTED NOT DETECTED SP Lab Report: Chlamydia/GC APTIMA/54013 - Microbiology Neisseria gonorrhoeae DNA probe NOT [...] Encounters Code Encounter Date Provider Facility POS CPT-49996 Level 3 New Patient 16:31:45 SPL[employer] DASHBOARD DEVELOPER Martha mcgovern MD [facility]-42741 Level 3 Est. Patient 15:18:56 SPL[employer]K DASHBOARD DEVELOPER Aminta aleman MD [facility] CPT-73805 Level 3 New Patient 09:54:09 CDT Aminta crockett MD [facility] CPT-68846 Level 3 Est. Patient 16:13:04 CDT Bubba Rao MD [facility]-42714 Level 3 Est. Patient 09:13:57 CDT Javi helton MD [facility] CPT-18746 Level 3 Est. Patient 19:39:38 SPLUNK DASHBOARD DEVELOPER Mona garcia [facility]-29952 Level 3 Est. Patient 16:36:36 SPLUNK DASHBOARD DEVELOPER Tara finley [facility]-80617 Level 3 Est. Patient 18:16:09 SPLUNK DASHBOARD DEVELOPER Ki FRAGA [facility] CPT-55926 Level 3 Est. Patient 23:51:12 CDT Dru jacobs DO [facility] Procedures Code Procedure Name Date Entry Date Standard Desc ription POS CPT-58978 Cystoscopy 16:31:45 SPL[employer]K DASHBOARD DEVELOPER CPT-J1050 Depo Provera 150 mg (Medroxyprogesterone) 07/16 16:14:20 SPLUNK DASHBOARD DEVELOPER [facility] CPT-00841 Abx/Therapy Injection 16:14:20 SPLUNK DASHBOARD DEVELOPER CPT-J1050 Depo Provera 150 mg (Medroxyprogesterone) 07/16 15:18:56 SPL[employer] DASHBOARD DEVELOPER [facility] CPT-J1050 Depo Provera 150 mg (Medroxyprogesterone) 02/22 17:47:25 CDT [facility] CPT-46524 Abx/Therapy Injection 17:47:25 CDT SP CPT-J1050 Depo Provera 150 mg (Medroxyprogesterone) 11/29 15:01:13 CDT SP SP CPT-40067 Abx/Therapy Injection 15:01:13 CDT SP CPT-J1050 Depo Provera 150 mg (Medroxyprogesterone) 09/12 15:43:44 SPLUNK DASHBOARD DEVELOPER SP CPT-04400 Abx/Therapy Injection 15:43:43 SPLUNK DASHBOARD DEVELOPER SP CPT-J1050 Depo Provera 150 mg (Medroxyprogesterone) 08/20 15:27:07 SPLUNK DASHBOARD DEVELOPER SP CPT-72005 Abx/Therapy Injection 15:27:07 SPLUNK DASHBOARD DEVELOPER SP CPT-J1050 Depo Provera 150 mg (Medroxyprogesterone) 04/04 14:51:55 CDT [facility] CPT-81782 Abx/Therapy Injection 14:51:55 CDT SP CPT-J1050 Depo Provera 150 mg (Medroxyprogesterone) 01/06 16:36:56 CDT [facility] CPT-86235 Abx/Therapy Injection 16:36:56 CDT SP CPT-44473 Administration 2+ single or combination vaccines inc oral SP CDT SP CPT-08416 Meningococcal B, OMV vaccine 17:00:43 CDT 2 SP CPT-24220 First Vx - Ix admin via ID I M or jet injects without counseling by SP 17:00:43 CDT SP CPT-97372 Menveo Intramuscular Solution Reconstituted 2016 17:00:41 CDT SP SP CPT-66174 Scoliosis 1 view - XRAY USE ONLY 15:43:41 C DT SP CPT-PV Prev. Care Visit 15:17:45 CDT SP CPT-J1050 Depo Provera 150 mg (Medroxyprogesterone) 10/17 15:23:30 CDT SP SP CPT-47909 Abx/Therapy Injection 15:23:30 CDT SP CPT-J1050 Depo Provera 150 mg (Medroxyprogesterone) 10/17 09:54:10 CDT SP SP CPT-J1050 Depo Provera 150 mg (Medroxyprogesterone) 07/20 15:55:07 SPLUNK DASHBOARD DEVELOPER SP SP CPT-87262 Abx/Therapy Injection 15:55:07 SPLUNK DASHBOARD DEVELOPER SP CPT-J1050 Depo Provera 150 mg (Medroxyprogesterone) 07/20 14:13:45 SPLUNK DASHBOARD DEVELOPER SP SP CPT-J1050 Depo Provera 150 mg (Medroxyprogesterone) 17:31:27 CDT SP SP CPT-46604 Abx/Therapy Injection 17:31:27 CDT SP CPT-J1050 Depo Provera 150 mg (Medroxyprogesterone) 08:47:12 CDT SP SP CPT-J1050 Depo Provera 150 mg (Medroxyprogesterone) 02/09 14:41:46 CDT SP SP CPT-J1050 Depo Provera 150 mg (Medroxyprogesterone) 02/08 10:57:18 CDT SP SP CPT-J1050 Depo Provera 150 mg (Medroxyprogesterone) 11/24 16:22:00 CDT SP SP CPT-11647 Abx/Therapy Injection 16:22:00 CDT SP CPT-J1050 Depo Provera 150 mg (Medroxyprogesterone) 09/07 15:03:00 SPLUNK DASHBOARD DEVELOPER SP SP CPT-73967 Abx/Therapy Injection 15:03:00 SPLUNK DASHBOARD DEVELOPER SP CPT-57541 Immunization Each Additional Inj 15:01:[address] SP CPT-68661 Immunization Single Admin 15:01:50 SPLUN[employer] DASHBOARD DEVELOPER 2015 SP CPT-83172 Vaqta (2 dose - Ped/Adol) 15:01:50 SPLUNK DASHBOARD DEVELOPER 2015 SP CPT-54813 Gardasil 15:01:50 SPLUNK DASHBOARD DEVELOPER SP CPT-J1055 Depo-Provera Injection only 150mg 08:51:07 SPLUNK DASHBOARD DEVELOPER SP CPT-68540 Scoliosis w sup/erect 17:37:29 CDT SP
--- OUTSIDE RECORDS SUMMARY | 2019-06-03 17:00 | XMS REPORT | Clinical Summary ---
Author Author Admin, E POS Organization [facility] SP Address Unknown SP Phone Unavailable SP Allergies, Adverse Reactions, Alerts Allergy Name Reaction Description Start Date Severity Status Pr ovider POS NKDA Critical Active Tara Rockwell SP Conditions or Problems Problem Name Problem [...] V20.2 Active 2 Bubba DOSS MD Routine or child health check SP BMI less [...] MG/ML INTRAMUSCULAR SUSPENSION 07/16 MEDROXYPROGEST SP (CONTRACEP) 58887982113 Active Tara Luli Active SP IBUPROFEN 600 MG ORAL TABLET 1 tab po prn for back pain SP 43306739433 No Longer Active Aminta Schaefer MD Active SP DEPO-PROVERA 150 MG/ML INTRAMUSCULAR SUSPENSION one every 3 months SP PRINCESS (CONTRACEP) 05751002326 No Longer Active Aminta Michaels ctive SP BACTRIM DS 800-160 MG ORAL TABLET 1 po BID x 7 days 20 24/10/05 SP 48621119145 No Longer Active Bubba Rao MD Activ e SP AMOXICILLIN 500 MG ORAL CAPSULE 1 tab by mouth 3 times daily 201 12/11/21 SP AMOXICILLIN 81168576874 No Longer Active Javi Alexander MD Active SP FLONASE ALLERGY RELIEF 50 MCG/ACT NASAL SUSPENSION 2 SPRAYS EA NOSTRIL DAILY SP FLUTICASONE PROPIONATE 61808216437 No Longer Active Manisha DOSS MD Active SP AMOXICILLIN 500 MG ORAL CAPSULE 1 cap by mouth three times a day SP AMOXICILLIN 84780414690 No Longer Active Tara Garg APRN Active SP CYCLOBENZAPRINE HCL 10 MG ORAL TABLET Take 1/2 tab every evening SP HCL 28441612602 No Longer Active Ki FRAGA Activ e SP CYCLOBENZAPRINE HCL 10 MG ORAL TABLET Take 1/2 tab every evening SP HCL 10 MG ORAL TABLET 848419 CYCLOBENZAPRINE HCL Inactive SP FLONASE ALLERGY RELIEF 50 MCG/ACT NASAL SUSPENSION 2 SPRAYS EA NOSTRIL DAILY SP FLONASE ALLERGY RELIEF 50 MCG/ACT NASAL SUSPENSI ON 5271344 SP PROPIONATE Inactive SP DEPO-PROVERA 150 MG/ML INTRAMUSCULAR SUSPENSION one every 3 months SPPROVERA 150 MG/ML INTRAMUSCULAR SUSPENSION 5905115 MEDROXYPR OGEST PRINCESS SP Inactive SP IBUPROFEN 600 MG ORAL TABLET 1 tab po prn for back pain SP 600 MG ORAL TABLET 032340 IBUPROFEN Inactive SP AMOXICILLIN 500 MG ORAL CAPSULE 1 cap by mouth three times a day SP AMOXICILLIN 500 MG ORAL CAPSULE 860626 AMOXICILLIN Inactive SP AMOXICILLIN 500 MG ORAL CAPSULE 1 tab by mouth 3 times daily 201 12/11/21 SP AMOXICILLIN 500 MG ORAL CAPSULE 156961 AMOXICILLIN Inactive SP BACTRIM DS 800-160 MG ORAL TABLET 1 po BID x 7 days 20 24/10/05 SP DS 800-160 MG ORAL TABLET 271321 SULFAMETHOXAZOLE-TRIMETHOPRIM I nactive SP Advance Directives Directive [...] E&M 99 [lb_av] Weight Measure d SP blood pressure, diastolic 74 mm[Hg] BP diggs SP blood pressure, systolic 115 mm[Hg] BP sys SP height E&M 64 [in_us] Bdy height SP pulse rate E&M 126 /min Heart rate SP temperature E&M 99.4 [degF] Body temp erature SP weight E&M 97.20 [lb_av] Weight Measure d SP Diagnostic Results Date Name Value Unit Range Description POS Lab Report: Chlamydia/GC APTIMA/95817 - Lab SP chlamydia DNA probe NOT DETECTED NOT DETECTED SP Lab Report: Chlamydia/GC APTIMA/53538 - Microbiology SP Neisseria gonorrhoeae DNA probe NOT DETECTED NO [...] (dipstick) 3+ SP glucose, urine, semiquantitative negative SP ketones, urine, by test strip negative SP bilirubin, urine negative SP Encounters Code Encounter Date Provider Facility POS CPT-21006 Level 3 New Patient 16:31:45 CRIMINAL LAWYER Martha mcgovern MD [facility] CPT-05203 Level 3 Est. Patient 15:18:56 CRIMINAL LAWYER Aminta aleman MD [facility] CPT-46025 Level 3 New Patient 09:54:09 CDT Aminta crockett MD [facility] CPT-28978 Level 3 Est. Patient 16:13:04 CDT Bubba Rao MD [facility]-65996 Level 3 Est. Patient 09:13:57 CDT Javi helton MD [facility] CPT-60208 Level 3 Est. Patient 19:39:38 CRIMINAL LAWYER Monayung Jurado um [facility]-03530 Level 3 Est. Patient 16:36:36 CRIMINAL LAWYER Tara Burke ll [facility]-76536 Level 3 Est. Patient 18:16:09 CRIMINAL LAWYER Ki FRAGA [facility] CPT-43118 Level 3 Est. Patient 23:51:12 CDT Dru jacobs DO [facility] Procedures Code Procedure Name Date Entry Date Standard Desc ription POS CPT-80992 Cystoscopy 16:31:45 CRIMINAL LAWYER CPT-J1050 Depo Provera 150 mg (Medroxyprogesterone) 07/16 16:14:20 CRIMINAL LAWYER [facility] CPT-55469 Abx/Therapy Injection 16:14:20 CRIMINAL LAWYER CPT-J1050 Depo Provera 150 mg (Medroxyprogesterone) 07/16 15:18:56 CRIMINAL LAWYER [facility] CPT-J1050 Depo Provera 150 mg (Medroxyprogesterone) 02/22 17:47:25 CDT [facility] CPT-80433 Abx/Therapy Injection 17:47:25 CDT SP CPT-J1050 Depo Provera 150 mg (Medroxyprogesterone) 11/29 15:01:13 CDT [facility] CPT-36723 Abx/Therapy Injection 15:01:13 CDT SP CPT-J1050 Depo Provera 150 mg (Medroxyprogesterone) 09/12 15:43:44 CRIMINAL LAWYER [facility] CPT-94463 Abx/Therapy Injection 15:43:43 CRIMINAL LAWYER SP CPT-J1050 Depo Provera 150 mg (Medroxyprogesterone) 08/20 15:27:07 CRIMINAL LAWYER [facility] CPT-01770 Abx/Therapy Injection 15:27:07 CRIMINAL LAWYER SP CPT-J1050 Depo Provera 150 mg (Medroxyprogesterone) 04/04 14:51:55 CDT [facility] CPT-23240 Abx/Therapy Injection 14:51:55 CDT SP CPT-J1050 Depo Provera 150 mg (Medroxyprogesterone) 01/06 16:36:56 CDT [facility] CPT-79767 Abx/Therapy Injection 16:36:56 CDT SP CPT-14850 Administration 2+ single or combination vaccines inc oral SP CDT SP CPT-99239 Meningococcal B, OMV vaccine 17:00:43 CDT 2 SP CPT-10112 First Vx - Ix admin via ID I M or jet injects without counseling by SP 17:00:43 CDT SP CPT-72614 Menveo Intramuscular Solution Reconstituted 2016 17:00:41 CDT SP CPT-09765 Scoliosis 1 view - XRAY USE ONLY 15:43:41 C DT SP CPT-PV Prev. Care Visit 15:17:45 CDT SP CPT-J1050 Depo Provera 150 mg (Medroxyprogesterone) 10/17 15:23:30 CDT SP SP CPT-35580 Abx/Therapy Injection 15:23:30 CDT SP CPT-J1050 Depo Provera 150 mg (Medroxyprogesterone) 10/17 09:54:10 CDT SP SP CPT-J1050 Depo Provera 150 mg (Medroxyprogesterone) 07/20 15:55:07 CRIMINAL LAWYER SP SP CPT-81612 Abx/Therapy Injection 15:55:07 CRIMINAL LAWYER SP CPT-J1050 Depo Provera 150 mg (Medroxyprogesterone) 07/20 14:13:45 CRIMINAL LAWYER SP SP CPT-J1050 Depo Provera 150 mg (Medroxyprogesterone) 17:31:27 CDT SP SP CPT-01645 Abx/Therapy Injection 17:31:27 CDT SP CPT-J1050 Depo Provera 150 mg (Medroxyprogesterone) 08:47:12 CDT SP SP CPT-J1050 Depo Provera 150 mg (Medroxyprogesterone) 02/09 14:41:46 CDT SP SP CPT-J1050 Depo Provera 150 mg (Medroxyprogesterone) 02/08 10:57:18 CDT SP SP CPT-J1050 Depo Provera 150 mg (Medroxyprogesterone) 11/24 16:22:00 CDT SP SP CPT-92213 Abx/Therapy Injection 16:22:00 CDT SP CPT-J1050 Depo Provera 150 mg (Medroxyprogesterone) 09/07 15:03:00 CRIMINAL LAWYER SP SP CPT-58619 Abx/Therapy Injection 15:03:00 CRIMINAL LAWYER SP CPT-66629 Immunization Each Additional Inj 15:01:[address] SP CPT-21423 Immunization Single Admin 15:01:50 CRIMINAL LAWYER 2015 SP CPT-97001 Vaqta (2 dose - Ped/Adol) 15:01:50 CRIMINAL LAWYER 2015 SP CPT-66054 Gardasil 15:01:50 CRIMINAL LAWYER SP CPT-J1055 Depo-Provera Injection only 150mg 08:51:07 CRIMINAL LAWYER SP CPT-02988 Scoliosis w sup/erect 17:37:29 CDT SP
--- OUTSIDE RECORDS SUMMARY | 2019-06-03 17:00 | XMS REPORT | Clinical Summary ---
Author Author Admin, SAPNA POS Organization [facility] SP Address Unknown SP Phone Unavailable [...] MG/ML INTRAMUSCULAR SUSPENSION 07/16 MEDROXYPROGEST SP (CONTRACEP) [id number] Active Tara Luli Active SP IBUPROFEN 600 MG ORAL TABLET 1 tab po prn for back pain SP 30785012331 No Longer Active Aminta Schaefer MD Active SP DEPO-PROVERA 150 MG/ML INTRAMUSCULAR SUSPENSION one every 3 months SP PRINCESS (CONTRACEP) 00693002467 No Longer Active Aminta Michaels ctive SP BACTRIM DS 800-160 MG ORAL TABLET 1 po BID x 7 days 20 24/10/05 SP 93908794253 No Longer Active Bubba Rao MD Activ e SP AMOXICILLIN 500 MG ORAL CAPSULE 1 tab by mouth 3 times daily 201 12/11/21 SP AMOXICILLIN 38589335987 No Longer Active Javi Alexander MD Active SP FLONASE ALLERGY RELIEF 50 MCG/ACT NASAL SUSPENSION 2 SPRAYS EA NOSTRIL DAILY SP FLUTICASONE PROPIONATE 64882086956 No Longer Active Manisha DOSS MD Active SP AMOXICILLIN 500 MG ORAL CAPSULE 1 cap by mouth three times a day SP AMOXICILLIN 36291300288 No Longer Active Tara Garg APRN Active SP CYCLOBENZAPRINE HCL 10 MG ORAL TABLET Take 1/2 tab every evening SP HCL 45918987186 No Longer Active Ki FRAGA Activ e SP CYCLOBENZAPRINE HCL 10 MG ORAL TABLET Take 1/2 tab every evening SP HCL 10 MG ORAL TABLET 020701 CYCLOBENZAPRINE HCL Inactive SP FLONASE ALLERGY RELIEF 50 MCG/ACT NASAL SUSPENSION 2 SPRAYS EA NOSTRIL DAILY SP FLONASE ALLERGY RELIEF 50 MCG/ACT NASAL SUSPENSI ON 0858368 SP PROPIONATE Inactive SP DEPO-PROVERA 150 MG/ML INTRAMUSCULAR SUSPENSION one every 3 months SPPROVERA 150 MG/ML INTRAMUSCULAR SUSPENSION 6044523 MEDROXYPR OGEST PRINCESS SP Inactive SP IBUPROFEN 600 MG ORAL TABLET 1 tab po prn for back pain SP 600 MG ORAL TABLET 333655 IBUPROFEN Inactive SP AMOXICILLIN 500 MG ORAL CAPSULE 1 cap by mouth three times a day SP AMOXICILLIN 500 MG ORAL CAPSULE 904335 AMOXICILLIN Inactive SP AMOXICILLIN 500 MG ORAL CAPSULE 1 tab by mouth 3 times daily 201 12/11/21 SP AMOXICILLIN 500 MG ORAL CAPSULE 971342 AMOXICILLIN Inactive SP BACTRIM DS 800-160 MG ORAL TABLET 1 po BID x 7 days 20 24/10/05 SP DS 800-160 MG ORAL TABLET 079327 SULFAMETHOXAZOLE-TRIMETHOPRIM I nactive SP Advance Directives Directive [...] Unit Range Description POS Lab Report: Chlamydia/GC APTIMA/31328 - Lab SP chlamydia DNA probe NOT DETECTED NOT DETECTED SP Lab Report: Chlamydia/GC APTIMA/19313 - Microbiology Neisseria gonorrhoeae DNA probe NOT [...] Encounters Code Encounter Date Provider Facility POS CPT-06038 Level 3 New Patient 16:31:45 HOME AID Martha mcgovern MD [facility]-00355 Level 3 Est. Patient 15:18:56 HOME AID Aminta aleman MD [facility] CPT-86936 Level 3 New Patient 09:54:09 CDT Aminta crockett MD [facility] CPT-50357 Level 3 Est. Patient 16:13:04 CDT Bubba Rao MD [facility]-90330 Level 3 Est. Patient 09:13:57 CDT Javi helton MD [facility] CPT-62684 Level 3 Est. Patient 19:39:38 HOME AID Mona garcia [facility]-45886 Level 3 Est. Patient 16:36:36 HOME AID Tara finley [facility]-50585 Level 3 Est. Patient 18:16:09 HOME AID Ki FRAGA [facility] CPT-33240 Level 3 Est. Patient 23:51:12 CDT Dru jacobs DO [facility] Procedures Code Procedure Name Date Entry Date Standard Desc ription POS CPT-30091 Cystoscopy 16:31:45 HOME AID CPT-J1050 Depo Provera 150 mg (Medroxyprogesterone) 07/16 16:14:20 HOME AID [facility] CPT-68038 Abx/Therapy Injection 16:14:20 HOME AID CPT-J1050 Depo Provera 150 mg (Medroxyprogesterone) 07/16 15:18:56 HOME AID [facility] CPT-J1050 Depo Provera 150 mg (Medroxyprogesterone) 02/22 17:47:25 CDT [facility] CPT-54854 Abx/Therapy Injection 17:47:25 CDT SP CPT-J1050 Depo Provera 150 mg (Medroxyprogesterone) 11/29 15:01:13 CDT SP SP CPT-64016 Abx/Therapy Injection 15:01:13 CDT SP CPT-J1050 Depo Provera 150 mg (Medroxyprogesterone) 09/12 15:43:44 HOME AID SP CPT-31670 Abx/Therapy Injection 15:43:43 HOME AID SP CPT-J1050 Depo Provera 150 mg (Medroxyprogesterone) 08/20 15:27:07 HOME AID SP CPT-87570 Abx/Therapy Injection 15:27:07 HOME AID SP CPT-J1050 Depo Provera 150 mg (Medroxyprogesterone) 04/04 14:51:55 CDT [facility] CPT-09712 Abx/Therapy Injection 14:51:55 CDT SP CPT-J1050 Depo Provera 150 mg (Medroxyprogesterone) 01/06 16:36:56 CDT [facility] CPT-59483 Abx/Therapy Injection 16:36:56 CDT SP CPT-96045 Administration 2+ single or combination vaccines inc oral SP CDT SP CPT-55881 Meningococcal B, OMV vaccine 17:00:43 CDT 2 SP CPT-49058 First Vx - Ix admin via ID I M or jet injects without counseling by SP 17:00:43 CDT SP CPT-67155 Menveo Intramuscular Solution Reconstituted 2016 17:00:41 CDT SP SP CPT-38719 Scoliosis 1 view - XRAY USE ONLY 15:43:41 C DT SP CPT-PV Prev. Care Visit 15:17:45 CDT SP CPT-J1050 Depo Provera 150 mg (Medroxyprogesterone) 10/17 15:23:30 CDT SP SP CPT-98290 Abx/Therapy Injection 15:23:30 CDT SP CPT-J1050 Depo Provera 150 mg (Medroxyprogesterone) 10/17 09:54:10 CDT SP SP CPT-J1050 Depo Provera 150 mg (Medroxyprogesterone) 07/20 15:55:07 HOME AID SP SP CPT-63694 Abx/Therapy Injection 15:55:07 HOME AID SP CPT-J1050 Depo Provera 150 mg (Medroxyprogesterone) 07/20 14:13:45 HOME AID SP SP CPT-J1050 Depo Provera 150 mg (Medroxyprogesterone) 17:31:27 CDT SP SP CPT-98814 Abx/Therapy Injection 17:31:27 CDT SP CPT-J1050 Depo Provera 150 mg (Medroxyprogesterone) 08:47:12 CDT SP SP CPT-J1050 Depo Provera 150 mg (Medroxyprogesterone) 02/09 14:41:46 CDT SP SP CPT-J1050 Depo Provera 150 mg (Medroxyprogesterone) 02/08 10:57:18 CDT SP SP CPT-J1050 Depo Provera 150 mg (Medroxyprogesterone) 11/24 16:22:00 CDT SP SP CPT-59053 Abx/Therapy Injection 16:22:00 CDT SP CPT-J1050 Depo Provera 150 mg (Medroxyprogesterone) 09/07 15:03:00 HOME AID SP SP CPT-98974 Abx/Therapy Injection 15:03:00 HOME AID SP CPT-65439 Immunization Each Additional Inj 15:01:[address] SP CPT-54591 Immunization Single Admin 15:01:50 HOME AID 2015 SP CPT-26426 Vaqta (2 dose - Ped/Adol) 15:01:50 HOME AID 2015 SP CPT-50174 Gardasil 15:01:50 HOME AID SP CPT-J1055 Depo-Provera Injection only 150mg 08:51:07 HOME AID SP CPT-20132 Scoliosis w sup/erect 17:37:29 CDT SP
--- OUTSIDE RECORDS SUMMARY | 2019-06-03 17:00 | XMS REPORT | Clinical Summary ---
Author Author Admin, SAPNA POS Organization [facility] SP Address Unknown SP Phone Unavailable SP [...] MG/ML INTRAMUSCULAR SUSPENSION 07/16 MEDROXYPROGEST SP (CONTRACEP) 92633261383 Active Tara Luli Active SP IBUPROFEN 600 MG ORAL TABLET 1 tab po prn for back pain SP 84673827144 No Longer Active Aminta Schaefer MD Active SP DEPO-PROVERA 150 MG/ML INTRAMUSCULAR SUSPENSION one every 3 months SP PRINCESS (CONTRACEP) 77970383333 No Longer Active Aminta Michaels ctive SP BACTRIM DS 800-160 MG ORAL TABLET 1 po BID x 7 days 20 24/10/05 SP 28067026936 No Longer Active Bubba Rao MD Activ e SP AMOXICILLIN 500 MG ORAL CAPSULE 1 tab by mouth 3 times daily 201 12/11/21 SP AMOXICILLIN 07650245105 No Longer Active Javi Alexander MD Active SP FLONASE ALLERGY RELIEF 50 MCG/ACT NASAL SUSPENSION 2 SPRAYS EA NOSTRIL DAILY SP FLUTICASONE PROPIONATE 23273731708 No Longer Active Manisha DOSS MD Active SP AMOXICILLIN 500 MG ORAL CAPSULE 1 cap by mouth three times a day SP AMOXICILLIN 22785152723 No Longer Active Tara Garg APRN Active SP CYCLOBENZAPRINE HCL 10 MG ORAL TABLET Take 1/2 tab every evening SP HCL 93398879303 No Longer Active Ki FRAGA Activ e SP CYCLOBENZAPRINE HCL 10 MG ORAL TABLET Take 1/2 tab every evening SP HCL 10 MG ORAL TABLET 453898 CYCLOBENZAPRINE HCL Inactive SP FLONASE ALLERGY RELIEF 50 MCG/ACT NASAL SUSPENSION 2 SPRAYS EA NOSTRIL DAILY SP FLONASE ALLERGY RELIEF 50 MCG/ACT NASAL SUSPENSI ON 9241632 SP PROPIONATE Inactive SP DEPO-PROVERA 150 MG/ML INTRAMUSCULAR SUSPENSION one every 3 months SPPROVERA 150 MG/ML INTRAMUSCULAR SUSPENSION 3120903 MEDROXYPR OGEST PRINCESS SP Inactive SP IBUPROFEN 600 MG ORAL TABLET 1 tab po prn for back pain SP 600 MG ORAL TABLET 232112 IBUPROFEN Inactive SP AMOXICILLIN 500 MG ORAL CAPSULE 1 cap by mouth three times a day SP AMOXICILLIN 500 MG ORAL CAPSULE 565893 AMOXICILLIN Inactive SP AMOXICILLIN 500 MG ORAL CAPSULE 1 tab by mouth 3 times daily 201 12/11/21 SP AMOXICILLIN 500 MG ORAL CAPSULE 495184 AMOXICILLIN Inactive SP BACTRIM DS 800-160 MG ORAL TABLET 1 po BID x 7 days 20 24/10/05 SP DS 800-160 MG ORAL TABLET 715894 SULFAMETHOXAZOLE-TRIMETHOPRIM I nactive SP Advance Directives Directive [...] Unit Range Description POS Lab Report: Chlamydia/GC APTIMA/22572 - Lab SP chlamydia DNA probe NOT DETECTED NOT DETECTED SP Lab Report: Chlamydia/GC APTIMA/10404 - Microbiology Neisseria gonorrhoeae DNA probe NOT [...] Encounters Code Encounter Date Provider Facility POS CPT-65707 Level 3 New Patient 16:31:45 ALUMINUM MOLDER Martha mcgovern MD [facility]-35718 Level 3 Est. Patient 15:18:56 ALUMINUM MOLDER Aminta aleman MD [facility] CPT-17173 Level 3 New Patient 09:54:09 CDT Aminta crockett MD [facility] CPT-57172 Level 3 Est. Patient 16:13:04 CDT Bubba Rao MD [facility]-57420 Level 3 Est. Patient 09:13:57 CDT Javi helton MD [facility] CPT-68545 Level 3 Est. Patient 19:39:38 ALUMINUM MOLDER Mnoa garcia [facility]-63678 Level 3 Est. Patient 16:36:36 ALUMINUM MOLDER Tara finley [facility]-34115 Level 3 Est. Patient 18:16:09 ALUMINUM MOLDER Ki FRAGA [facility] CPT-31280 Level 3 Est. Patient 23:51:12 CDT Dru jacobs DO [facility] Procedures Code Procedure Name Date Entry Date Standard Desc ription POS CPT-80982 Cystoscopy 16:31:45 ALUMINUM MOLDER CPT-J1050 Depo Provera 150 mg (Medroxyprogesterone) 07/16 16:14:20 ALUMINUM MOLDER [facility] CPT-74899 Abx/Therapy Injection 16:14:20 ALUMINUM MOLDER CPT-J1050 Depo Provera 150 mg (Medroxyprogesterone) 07/16 15:18:56 ALUMINUM MOLDER [facility] CPT-J1050 Depo Provera 150 mg (Medroxyprogesterone) 02/22 17:47:25 CDT [facility] CPT-28713 Abx/Therapy Injection 17:47:25 CDT SP CPT-J1050 Depo Provera 150 mg (Medroxyprogesterone) 11/29 15:01:13 CDT SP SP CPT-84392 Abx/Therapy Injection 15:01:13 CDT SP CPT-J1050 Depo Provera 150 mg (Medroxyprogesterone) 09/12 15:43:44 ALUMINUM MOLDER SP CPT-07875 Abx/Therapy Injection 15:43:43 ALUMINUM MOLDER SP CPT-J1050 Depo Provera 150 mg (Medroxyprogesterone) 08/20 15:27:07 ALUMINUM MOLDER SP CPT-49888 Abx/Therapy Injection 15:27:07 ALUMINUM MOLDER SP CPT-J1050 Depo Provera 150 mg (Medroxyprogesterone) 04/04 14:51:55 CDT [facility] CPT-93256 Abx/Therapy Injection 14:51:55 CDT SP CPT-J1050 Depo Provera 150 mg (Medroxyprogesterone) 01/06 16:36:56 CDT [facility] CPT-26438 Abx/Therapy Injection 16:36:56 CDT SP CPT-63389 Administration 2+ single or combination vaccines inc oral SP CDT SP CPT-77084 Meningococcal B, OMV vaccine 17:00:43 CDT 2 SP CPT-06778 First Vx - Ix admin via ID I M or jet injects without counseling by SP 17:00:43 CDT SP CPT-99596 Menveo Intramuscular Solution Reconstituted 2016 17:00:41 CDT SP SP CPT-22385 Scoliosis 1 view - XRAY USE ONLY 15:43:41 C DT SP CPT-PV Prev. Care Visit 15:17:45 CDT SP CPT-J1050 Depo Provera 150 mg (Medroxyprogesterone) 10/17 15:23:30 CDT SP SP CPT-62749 Abx/Therapy Injection 15:23:30 CDT SP CPT-J1050 Depo Provera 150 mg (Medroxyprogesterone) 10/17 09:54:10 CDT SP SP CPT-J1050 Depo Provera 150 mg (Medroxyprogesterone) 07/20 15:55:07 ALUMINUM MOLDER SP SP CPT-74981 Abx/Therapy Injection 15:55:07 ALUMINUM MOLDER SP CPT-J1050 Depo Provera 150 mg (Medroxyprogesterone) 07/20 14:13:45 ALUMINUM MOLDER SP SP CPT-J1050 Depo Provera 150 mg (Medroxyprogesterone) 17:31:27 CDT SP SP CPT-65994 Abx/Therapy Injection 17:31:27 CDT SP CPT-J1050 Depo Provera 150 mg (Medroxyprogesterone) 08:47:12 CDT SP SP CPT-J1050 Depo Provera 150 mg (Medroxyprogesterone) 02/09 14:41:46 CDT SP SP CPT-J1050 Depo Provera 150 mg (Medroxyprogesterone) 02/08 10:57:18 CDT SP SP CPT-J1050 Depo Provera 150 mg (Medroxyprogesterone) 11/24 16:22:00 CDT SP SP CPT-06100 Abx/Therapy Injection 16:22:00 CDT SP CPT-J1050 Depo Provera 150 mg (Medroxyprogesterone) 09/07 15:03:00 ALUMINUM MOLDER SP SP CPT-98599 Abx/Therapy Injection 15:03:00 ALUMINUM MOLDER SP CPT-61105 Immunization Each Additional Inj 15:01:[address] SP CPT-59289 Immunization Single Admin 15:01:50 ALUMINUM MOLDER 2015 SP CPT-12604 Vaqta (2 dose - Ped/Adol) 15:01:50 ALUMINUM MOLDER 2015 SP CPT-81033 Gardasil 15:01:50 ALUMINUM MOLDER SP CPT-J1055 Depo-Provera Injection only 150mg 08:51:07 ALUMINUM MOLDER SP CPT-89233 Scoliosis w sup/erect 17:37:29 CDT SP
--- OUTSIDE RECORDS SUMMARY | 2019-06-03 17:01 | XMS REPORT | Clinical Summary ---
Author Author Admin, E POS Organization [facility] SP Address Unknown SP Phone Unavailable SP [...] MG/ML INTRAMUSCULAR SUSPENSION 07/16 MEDROXYPROGEST SP (CONTRACEP) 93960605422 Active Tara Luli Active SP IBUPROFEN 600 MG ORAL TABLET 1 tab po prn for back pain SP 54257979172 No Longer Active Aminta Schaefer MD Active SP DEPO-PROVERA 150 MG/ML INTRAMUSCULAR SUSPENSION one every 3 months SP PRINCESS (CONTRACEP) 29998735664 No Longer Active Aminta Michaels ctive SP BACTRIM DS 800-160 MG ORAL TABLET 1 po BID x 7 days 20 24/10/05 SP 51029759257 No Longer Active Bubba Rao MD Activ e SP AMOXICILLIN 500 MG ORAL CAPSULE 1 tab by mouth 3 times daily 201 12/11/21 SP AMOXICILLIN 79230899363 No Longer Active Javi Alexander MD Active SP FLONASE ALLERGY RELIEF 50 MCG/ACT NASAL SUSPENSION 2 SPRAYS EA NOSTRIL DAILY SP FLUTICASONE PROPIONATE 45518745920 No Longer Active Manisha DOSS MD Active SP AMOXICILLIN 500 MG ORAL CAPSULE 1 cap by mouth three times a day SP AMOXICILLIN 55645609228 No Longer Active Tara Garg APRN Active SP CYCLOBENZAPRINE HCL 10 MG ORAL TABLET Take 1/2 tab every evening SP HCL 07773942357 No Longer Active Ki FRAGA Activ e SP CYCLOBENZAPRINE HCL 10 MG ORAL TABLET Take 1/2 tab every evening SP HCL 10 MG ORAL TABLET 281590 CYCLOBENZAPRINE HCL Inactive SP FLONASE ALLERGY RELIEF 50 MCG/ACT NASAL SUSPENSION 2 SPRAYS EA NOSTRIL DAILY SP FLONASE ALLERGY RELIEF 50 MCG/ACT NASAL SUSPENSI ON 6405570 SP PROPIONATE Inactive SP DEPO-PROVERA 150 MG/ML INTRAMUSCULAR SUSPENSION one every 3 months SPPROVERA 150 MG/ML INTRAMUSCULAR SUSPENSION 8964424 MEDROXYPR OGEST PRINCESS SP Inactive SP IBUPROFEN 600 MG ORAL TABLET 1 tab po prn for back pain SP 600 MG ORAL TABLET 003268 IBUPROFEN Inactive SP AMOXICILLIN 500 MG ORAL CAPSULE 1 cap by mouth three times a day SP AMOXICILLIN 500 MG ORAL CAPSULE 245443 AMOXICILLIN Inactive SP AMOXICILLIN 500 MG ORAL CAPSULE 1 tab by mouth 3 times daily 201 12/11/21 SP AMOXICILLIN 500 MG ORAL CAPSULE 632515 AMOXICILLIN Inactive SP BACTRIM DS 800-160 MG ORAL TABLET 1 po BID x 7 days 20 24/10/05 SP DS 800-160 MG ORAL TABLET 594799 SULFAMETHOXAZOLE-TRIMETHOPRIM I nactive SP Advance Directives Directive [...] Unit Range Description POS Lab Report: Chlamydia/GC APTIMA/76383 - Lab SP chlamydia DNA probe NOT DETECTED NOT DETECTED SP Lab Report: Chlamydia/GC APTIMA/50450 - Microbiology SP Neisseria gonorrhoeae DNA probe [...] Encounters Code Encounter Date Provider Facility POS CPT-45972 Level 3 New Patient 16:31:45 INFORMATION SERVICES VICE PRESIDENT Martha mcgovern MD [facility] CPT-82310 Level 3 Est. Patient 15:18:56 INFORMATION SERVICES VICE PRESIDENT Aminta aleman MD [facility] CPT-96528 Level 3 New Patient 09:54:09 CDT Aminta crockett MD [facility] CPT-07981 Level 3 Est. Patient 16:13:04 CDT Bubba Rao MD [facility]-49610 Level 3 Est. Patient 09:13:57 CDT Javi helton MD [facility] CPT-11904 Level 3 Est. Patient 19:39:38 INFORMATION SERVICES VICE PRESIDENT Monayung Jurado [facility]-74361 Level 3 Est. Patient 16:36:36 INFORMATION SERVICES VICE PRESIDENT Tara Burke ll [facility]-39353 Level 3 Est. Patient 18:16:09 INFORMATION SERVICES VICE PRESIDENT Ki FRAGA [facility] CPT-18919 Level 3 Est. Patient 23:51:12 CDT Dru jacobs DO [facility] Procedures Code Procedure Name Date Entry Date Standard Desc ription POS CPT-29546 Cystoscopy 16:31:45 INFORMATION SERVICES VICE PRESIDENT CPT-J1050 Depo Provera 150 mg (Medroxyprogesterone) 07/16 16:14:20 INFORMATION SERVICES VICE PRESIDENT [facility] CPT-39167 Abx/Therapy Injection 16:14:20 INFORMATION SERVICES VICE PRESIDENT CPT-J1050 Depo Provera 150 mg (Medroxyprogesterone) 07/16 15:18:56 INFORMATION SERVICES VICE PRESIDENT [facility] CPT-J1050 Depo Provera 150 mg (Medroxyprogesterone) 02/22 17:47:25 CDT [facility] CPT-14949 Abx/Therapy Injection 17:47:25 CDT SP CPT-J1050 Depo Provera 150 mg (Medroxyprogesterone) 11/29 15:01:13 CDT [facility] CPT-88547 Abx/Therapy Injection 15:01:13 CDT SP CPT-J1050 Depo Provera 150 mg (Medroxyprogesterone) 09/12 15:43:44 INFORMATION SERVICES VICE PRESIDENT [facility] CPT-10284 Abx/Therapy Injection 15:43:43 INFORMATION SERVICES VICE PRESIDENT SP CPT-J1050 Depo Provera 150 mg (Medroxyprogesterone) 08/20 15:27:07 INFORMATION SERVICES VICE PRESIDENT [facility] CPT-29912 Abx/Therapy Injection 15:27:07 INFORMATION SERVICES VICE PRESIDENT SP CPT-J1050 Depo Provera 150 mg (Medroxyprogesterone) 04/04 14:51:55 CDT [facility] CPT-87980 Abx/Therapy Injection 14:51:55 CDT SP CPT-J1050 Depo Provera 150 mg (Medroxyprogesterone) 01/06 16:36:56 CDT [facility] CPT-68615 Abx/Therapy Injection 16:36:56 CDT SP CPT-33641 Administration 2+ single or combination vaccines inc oral SP CDT SP CPT-23987 Meningococcal B, OMV vaccine 17:00:43 CDT 2 SP CPT-19814 First Vx - Ix admin via ID I M or jet injects without counseling by SP 17:00:43 CDT SP CPT-46264 Menveo Intramuscular Solution Reconstituted 2016 17:00:41 CDT SP CPT-56600 Scoliosis 1 view - XRAY USE ONLY 15:43:41 C DT SP CPT-PV Prev. Care Visit 15:17:45 CDT SP CPT-J1050 Depo Provera 150 mg (Medroxyprogesterone) 10/17 15:23:30 CDT SP SP CPT-22765 Abx/Therapy Injection 15:23:30 CDT SP CPT-J1050 Depo Provera 150 mg (Medroxyprogesterone) 10/17 09:54:10 CDT SP SP CPT-J1050 Depo Provera 150 mg (Medroxyprogesterone) 07/20 15:55:07 INFORMATION SERVICES VICE PRESIDENT SP SP CPT-11075 Abx/Therapy Injection 15:55:07 INFORMATION SERVICES VICE PRESIDENT SP CPT-J1050 Depo Provera 150 mg (Medroxyprogesterone) 07/20 14:13:45 INFORMATION SERVICES VICE PRESIDENT SP SP CPT-J1050 Depo Provera 150 mg (Medroxyprogesterone) 17:31:27 CDT SP SP CPT-48744 Abx/Therapy Injection 17:31:27 CDT SP CPT-J1050 Depo Provera 150 mg (Medroxyprogesterone) 08:47:12 CDT SP SP CPT-J1050 Depo Provera 150 mg (Medroxyprogesterone) 02/09 14:41:46 CDT SP SP CPT-J1050 Depo Provera 150 mg (Medroxyprogesterone) 02/08 10:57:18 CDT SP SP CPT-J1050 Depo Provera 150 mg (Medroxyprogesterone) 11/24 16:22:00 CDT SP SP CPT-64894 Abx/Therapy Injection 16:22:00 CDT SP CPT-J1050 Depo Provera 150 mg (Medroxyprogesterone) 09/07 15:03:00 INFORMATION SERVICES VICE PRESIDENT SP SP CPT-51267 Abx/Therapy Injection 15:03:00 INFORMATION SERVICES VICE PRESIDENT SP CPT-42959 Immunization Each Additional Inj 15:01:[address] SP CPT-43115 Immunization Single Admin 15:01:50 INFORMATION SERVICES VICE PRESIDENT 2015 SP CPT-83963 Vaqta (2 dose - Ped/Adol) 15:01:50 INFORMATION SERVICES VICE PRESIDENT 2015 SP CPT-17706 Gardasil 15:01:50 INFORMATION SERVICES VICE PRESIDENT SP CPT-J1055 Depo-Provera Injection only 150mg 08:51:07 INFORMATION SERVICES VICE PRESIDENT SP CPT-37562 Scoliosis w sup/erect 17:37:29 CDT SP
--- OUTSIDE RECORDS SUMMARY | 2019-06-03 17:01 | XMS REPORT | Clinical Summary ---
Author Author Admin, SAPNA POS Organization [facility] SP Address Unknown SP Phone [...] than 19, adult SP Underweight Active Martha Sroto MD Underweight SP Gross hematuria 597.1 Active [...] MG/ML INTRAMUSCULAR SUSPENSION 07/16 MEDROXYPROGEST SP (CONTRACEP) 13901224932 Active Tara Luli Active SP IBUPROFEN 600 MG ORAL TABLET 1 tab po prn for back pain SP 36926111292 No Longer Active Aminta Schaefer MD Active SP DEPO-PROVERA 150 MG/ML INTRAMUSCULAR SUSPENSION one every 3 months SP PRINCESS (CONTRACEP) 42234286866 No Longer Active Aminta Michaels ctive SP BACTRIM DS 800-160 MG ORAL TABLET 1 po BID x 7 days 20 24/10/05 SP 44437598937 No Longer Active Bubba Rao MD Activ e SP AMOXICILLIN 500 MG ORAL CAPSULE 1 tab by mouth 3 times daily 201 12/11/21 SP AMOXICILLIN 88796973386 No Longer Active Javi Alexander MD Active SP FLONASE ALLERGY RELIEF 50 MCG/ACT NASAL SUSPENSION 2 SPRAYS EA NOSTRIL DAILY SP FLUTICASONE PROPIONATE 76297354042 No Longer Active Manisha DOSS MD Active SP AMOXICILLIN 500 MG ORAL CAPSULE 1 cap by mouth three times a day SP AMOXICILLIN 65247523185 No Longer Active Tara Garg APRN Active SP CYCLOBENZAPRINE HCL 10 MG ORAL TABLET Take 1/2 tab every evening SP HCL 19476647770 No Longer Active Ki FRAGA Activ e SP CYCLOBENZAPRINE HCL 10 MG ORAL TABLET Take 1/2 tab every evening SP HCL 10 MG ORAL TABLET 932459 CYCLOBENZAPRINE HCL Inactive SP FLONASE ALLERGY RELIEF 50 MCG/ACT NASAL SUSPENSION 2 SPRAYS EA NOSTRIL DAILY SP FLONASE ALLERGY RELIEF 50 MCG/ACT NASAL SUSPENSI ON 3618277 SP PROPIONATE Inactive SP DEPO-PROVERA 150 MG/ML INTRAMUSCULAR SUSPENSION one every 3 months SPPROVERA 150 MG/ML INTRAMUSCULAR SUSPENSION 7395086 MEDROXYPR OGEST PRINCESS SP Inactive SP IBUPROFEN 600 MG ORAL TABLET 1 tab po prn for back pain SP 600 MG ORAL TABLET 315871 IBUPROFEN Inactive SP AMOXICILLIN 500 MG ORAL CAPSULE 1 cap by mouth three times a day SP AMOXICILLIN 500 MG ORAL CAPSULE 357969 AMOXICILLIN Inactive SP AMOXICILLIN 500 MG ORAL CAPSULE 1 tab by mouth 3 times daily 201 12/11/21 SP AMOXICILLIN 500 MG ORAL CAPSULE 563334 AMOXICILLIN Inactive SP BACTRIM DS 800-160 MG ORAL TABLET 1 po BID x 7 days 20 24/10/05 SP DS 800-160 MG ORAL TABLET 601337 SULFAMETHOXAZOLE-TRIMETHOPRIM I nactive SP Advance Directives Directive [...] Unit Range Description POS Lab Report: Chlamydia/GC APTIMA/87089 - Lab SP chlamydia DNA probe NOT DETECTED NOT DETECTED SP Lab Report: Chlamydia/GC APTIMA/89766 - Microbiology Neisseria gonorrhoeae DNA probe NOT [...] Encounters Code Encounter Date Provider Facility POS CPT-08603 Level 3 New Patient 16:31:45 REMOTE SENSING TECHNICIAN Martha mcgovern MD [facility]-74858 Level 3 Est. Patient 15:18:56 REMOTE SENSING TECHNICIAN Aminta aleman MD [facility] CPT-04172 Level 3 New Patient 09:54:09 CDT Aminta crockett MD [facility] CPT-74929 Level 3 Est. Patient 16:13:04 CDT Bubba Rao MD [facility]-29819 Level 3 Est. Patient 09:13:57 CDT [facility] Level 3 Est. Patient 19:39:38 REMOTE SENSING TECHNICIAN Mona garcia [facility]-82787 Level 3 Est. Patient 16:36:36 REMOTE SENSING TECHNICIAN Tara finley [facility]-87791 Level 3 Est. Patient 18:16:09 REMOTE SENSING TECHNICIAN Ki FRAGA [facility] CPT-44415 Level 3 Est. Patient 23:51:12 CDT Dru jacobs DO [facility] Procedures Code Procedure Name Date Entry Date Standard Desc ription POS CPT-19663 Cystoscopy 16:31:45 REMOTE SENSING TECHNICIAN CPT-J1050 Depo Provera 150 mg (Medroxyprogesterone) 07/16 16:14:20 REMOTE SENSING TECHNICIAN [facility] CPT-40434 Abx/Therapy Injection 16:14:20 REMOTE SENSING TECHNICIAN CPT-J1050 Depo Provera 150 mg (Medroxyprogesterone) 07/16 15:18:56 REMOTE SENSING TECHNICIAN [facility] CPT-J1050 Depo Provera 150 mg (Medroxyprogesterone) 02/22 17:47:25 CDT [facility] CPT-59584 Abx/Therapy Injection 17:47:25 CDT SP CPT-J1050 Depo Provera 150 mg (Medroxyprogesterone) 11/29 15:01:13 CDT SP SP CPT-95801 Abx/Therapy Injection 15:01:13 CDT SP CPT-J1050 Depo Provera 150 mg (Medroxyprogesterone) 09/12 15:43:44 REMOTE SENSING TECHNICIAN SP CPT-38663 Abx/Therapy Injection 15:43:43 REMOTE SENSING TECHNICIAN SP CPT-J1050 Depo Provera 150 mg (Medroxyprogesterone) 08/20 15:27:07 REMOTE SENSING TECHNICIAN SP CPT-60483 Abx/Therapy Injection 15:27:07 REMOTE SENSING TECHNICIAN SP CPT-J1050 Depo Provera 150 mg (Medroxyprogesterone) 04/04 14:51:55 CDT [facility] CPT-48744 Abx/Therapy Injection 14:51:55 CDT SP CPT-J1050 Depo Provera 150 mg (Medroxyprogesterone) 01/06 16:36:56 CDT [facility] CPT-23105 Abx/Therapy Injection 16:36:56 CDT SP CPT-56559 Administration 2+ single or combination vaccines inc oral SP CDT SP CPT-56527 Meningococcal B, OMV vaccine 17:00:43 CDT 2 SP CPT-31596 First Vx - Ix admin via ID I M or jet injects without counseling by SP 17:00:43 CDT SP CPT-88384 Menveo Intramuscular Solution Reconstituted 2016 17:00:41 CDT SP SP CPT-73362 Scoliosis 1 view - XRAY USE ONLY 15:43:41 C DT SP CPT-PV Prev. Care Visit 15:17:45 CDT SP CPT-J1050 Depo Provera 150 mg (Medroxyprogesterone) 10/17 15:23:30 CDT SP SP CPT-02139 Abx/Therapy Injection 15:23:30 CDT SP CPT-J1050 Depo Provera 150 mg (Medroxyprogesterone) 10/17 09:54:10 CDT SP SP CPT-J1050 Depo Provera 150 mg (Medroxyprogesterone) 07/20 15:55:07 REMOTE SENSING TECHNICIAN SP SP CPT-85705 Abx/Therapy Injection 15:55:07 REMOTE SENSING TECHNICIAN SP CPT-J1050 Depo Provera 150 mg (Medroxyprogesterone) 07/20 14:13:45 REMOTE SENSING TECHNICIAN SP SP CPT-J1050 Depo Provera 150 mg (Medroxyprogesterone) 17:31:27 CDT SP SP CPT-03961 Abx/Therapy Injection 17:31:27 CDT SP CPT-J1050 Depo Provera 150 mg (Medroxyprogesterone) 08:47:12 CDT SP SP CPT-J1050 Depo Provera 150 mg (Medroxyprogesterone) 02/09 14:41:46 CDT SP SP CPT-J1050 Depo Provera 150 mg (Medroxyprogesterone) 02/08 10:57:18 CDT SP SP CPT-J1050 Depo Provera 150 mg (Medroxyprogesterone) 11/24 16:22:00 CDT SP SP CPT-91976 Abx/Therapy Injection 16:22:00 CDT SP CPT-J1050 Depo Provera 150 mg (Medroxyprogesterone) 09/07 15:03:00 REMOTE SENSING TECHNICIAN SP SP CPT-66059 Abx/Therapy Injection 15:03:00 REMOTE SENSING TECHNICIAN SP CPT-87922 Immunization Each Additional Inj 15:01:[address] SP CPT-16388 Immunization Single Admin 15:01:50 REMOTE SENSING TECHNICIAN 2015 SP CPT-86355 Vaqta (2 dose - Ped/Adol) 15:01:50 REMOTE SENSING TECHNICIAN 2015 SP CPT-56501 Gardasil 15:01:50 REMOTE SENSING TECHNICIAN SP CPT-J1055 Depo-Provera Injection only 150mg 08:51:07 REMOTE SENSING TECHNICIAN SP CPT-17242 Scoliosis w sup/erect 17:37:29 CDT SP
--- OUTSIDE RECORDS SUMMARY | 2019-06-03 17:01 | XMS REPORT | Clinical Summary ---
Author Author Admin, SAPNA POS Organization [facility] SP Address Unknown SP Phone Unavailable SP [...] MG/ML INTRAMUSCULAR SUSPENSION 07/16 MEDROXYPROGEST SP (CONTRACEP) 79300948773 Active Tara Luli Active SP IBUPROFEN 600 MG ORAL TABLET 1 tab po prn for back pain SP 78040029169 No Longer Active Aminta Schaefer MD Active SP DEPO-PROVERA 150 MG/ML INTRAMUSCULAR SUSPENSION one every 3 months SP PRINCESS (CONTRACEP) 28401050765 No Longer Active Aminta Michaels ctive SP BACTRIM DS 800-160 MG ORAL TABLET 1 po BID x 7 days 20 24/10/05 SP 67494827146 No Longer Active Bubba Rao MD Activ e SP AMOXICILLIN 500 MG ORAL CAPSULE 1 tab by mouth 3 times daily 201 12/11/21 SP AMOXICILLIN 45098801238 No Longer Active Javi Alexander MD Active SP FLONASE ALLERGY RELIEF 50 MCG/ACT NASAL SUSPENSION 2 SPRAYS EA NOSTRIL DAILY SP FLUTICASONE PROPIONATE 60404847221 No Longer Active Manisha DOSS MD Active SP AMOXICILLIN 500 MG ORAL CAPSULE 1 cap by mouth three times a day SP AMOXICILLIN 47637493176 No Longer Active Tara Garg APRN Active SP CYCLOBENZAPRINE HCL 10 MG ORAL TABLET Take 1/2 tab every evening SP HCL 48620840846 No Longer Active Ki FRAGA Activ e SP CYCLOBENZAPRINE HCL 10 MG ORAL TABLET Take 1/2 tab every evening SP HCL 10 MG ORAL TABLET 570021 CYCLOBENZAPRINE HCL Inactive SP FLONASE ALLERGY RELIEF 50 MCG/ACT NASAL SUSPENSION 2 SPRAYS EA NOSTRIL DAILY SP FLONASE ALLERGY RELIEF 50 MCG/ACT NASAL SUSPENSI ON 0347631 SP PROPIONATE Inactive SP DEPO-PROVERA 150 MG/ML INTRAMUSCULAR SUSPENSION one every 3 months SPPROVERA 150 MG/ML INTRAMUSCULAR SUSPENSION 8072669 MEDROXYPR OGEST PRINCESS SP Inactive SP IBUPROFEN 600 MG ORAL TABLET 1 tab po prn for back pain SP 600 MG ORAL TABLET 077027 IBUPROFEN Inactive SP AMOXICILLIN 500 MG ORAL CAPSULE 1 cap by mouth three times a day SP AMOXICILLIN 500 MG ORAL CAPSULE 851232 AMOXICILLIN Inactive SP AMOXICILLIN 500 MG ORAL CAPSULE 1 tab by mouth 3 times daily 201 12/11/21 SP AMOXICILLIN 500 MG ORAL CAPSULE 607426 AMOXICILLIN Inactive SP BACTRIM DS 800-160 MG ORAL TABLET 1 po BID x 7 days 20 24/10/05 SP DS 800-160 MG ORAL TABLET 930373 SULFAMETHOXAZOLE-TRIMETHOPRIM I nactive SP Advance Directives Directive [...] Unit Range Description POS Lab Report: Chlamydia/GC APTIMA/51245 - Lab SP chlamydia DNA probe NOT DETECTED NOT DETECTED SP Lab Report: Chlamydia/GC APTIMA/37747 - Microbiology Neisseria gonorrhoeae DNA probe NOT [...] Encounters Code Encounter Date Provider Facility POS CPT-63899 Level 3 New Patient 16:31:45 OFFICE ENGINEER Martha mcgovern MD [facility]-49636 Level 3 Est. Patient 15:18:56 OFFICE ENGINEER Aminta aleman MD [facility] CPT-40064 Level 3 New Patient 09:54:09 CDT Aminta crockett MD [facility] CPT-81334 Level 3 Est. Patient 16:13:04 CDT Bubba Rao MD [facility]-73603 Level 3 Est. Patient 09:13:57 CDT Javi helton MD [facility] CPT-39486 Level 3 Est. Patient 19:39:38 OFFICE ENGINEER Mona garcia [facility]-58299 Level 3 Est. Patient 16:36:36 OFFICE ENGINEER Tara finley [facility]-38916 Level 3 Est. Patient 18:16:09 OFFICE ENGINEER Ki FRAGA [facility] CPT-27160 Level 3 Est. Patient 23:51:12 CDT Dru jacobs DO [facility] Procedures Code Procedure Name Date Entry Date Standard Desc ription POS CPT-14390 Cystoscopy 16:31:45 OFFICE ENGINEER CPT-J1050 Depo Provera 150 mg (Medroxyprogesterone) 07/16 16:14:20 OFFICE ENGINEER [facility] CPT-61251 Abx/Therapy Injection 16:14:20 OFFICE ENGINEER CPT-J1050 Depo Provera 150 mg (Medroxyprogesterone) 07/16 15:18:56 OFFICE ENGINEER [facility] CPT-J1050 Depo Provera 150 mg (Medroxyprogesterone) 02/22 17:47:25 CDT [facility] CPT-19263 Abx/Therapy Injection 17:47:25 CDT SP CPT-J1050 Depo Provera 150 mg (Medroxyprogesterone) 11/29 15:01:13 CDT SP SP CPT-97283 Abx/Therapy Injection 15:01:13 CDT SP CPT-J1050 Depo Provera 150 mg (Medroxyprogesterone) 09/12 15:43:44 OFFICE ENGINEER SP CPT-89018 Abx/Therapy Injection 15:43:43 OFFICE ENGINEER SP CPT-J1050 Depo Provera 150 mg (Medroxyprogesterone) 08/20 15:27:07 OFFICE ENGINEER SP CPT-34133 Abx/Therapy Injection 15:27:07 OFFICE ENGINEER SP CPT-J1050 Depo Provera 150 mg (Medroxyprogesterone) 04/04 14:51:55 CDT [facility] CPT-64191 Abx/Therapy Injection 14:51:55 CDT SP CPT-J1050 Depo Provera 150 mg (Medroxyprogesterone) 01/06 16:36:56 CDT [facility] CPT-46641 Abx/Therapy Injection 16:36:56 CDT SP CPT-71656 Administration 2+ single or combination vaccines inc oral SP CDT SP CPT-99468 Meningococcal B, OMV vaccine 17:00:43 CDT 2 SP CPT-41612 First Vx - Ix admin via ID I M or jet injects without counseling by SP 17:00:43 CDT SP CPT-78119 Menveo Intramuscular Solution Reconstituted 2016 17:00:41 CDT SP SP CPT-25634 Scoliosis 1 view - XRAY USE ONLY 15:43:41 C DT SP CPT-PV Prev. Care Visit 15:17:45 CDT SP CPT-J1050 Depo Provera 150 mg (Medroxyprogesterone) 10/17 15:23:30 CDT SP SP CPT-37715 Abx/Therapy Injection 15:23:30 CDT SP CPT-J1050 Depo Provera 150 mg (Medroxyprogesterone) 10/17 09:54:10 CDT SP SP CPT-J1050 Depo Provera 150 mg (Medroxyprogesterone) 07/20 15:55:07 OFFICE ENGINEER SP SP CPT-42928 Abx/Therapy Injection 15:55:07 OFFICE ENGINEER SP CPT-J1050 Depo Provera 150 mg (Medroxyprogesterone) 07/20 14:13:45 OFFICE ENGINEER SP SP CPT-J1050 Depo Provera 150 mg (Medroxyprogesterone) 17:31:27 CDT SP SP CPT-46799 Abx/Therapy Injection 17:31:27 CDT SP CPT-J1050 Depo Provera 150 mg (Medroxyprogesterone) 08:47:12 CDT SP SP CPT-J1050 Depo Provera 150 mg (Medroxyprogesterone) 02/09 14:41:46 CDT SP SP CPT-J1050 Depo Provera 150 mg (Medroxyprogesterone) 02/08 10:57:18 CDT SP SP CPT-J1050 Depo Provera 150 mg (Medroxyprogesterone) 11/24 16:22:00 CDT SP SP CPT-24673 Abx/Therapy Injection 16:22:00 CDT SP CPT-J1050 Depo Provera 150 mg (Medroxyprogesterone) 09/07 15:03:00 OFFICE ENGINEER SP SP CPT-86320 Abx/Therapy Injection 15:03:00 OFFICE ENGINEER SP CPT-18222 Immunization Each Additional Inj 15:01:[address] SP CPT-25380 Immunization Single Admin 15:01:50 OFFICE ENGINEER 2015 SP CPT-26456 Vaqta (2 dose - Ped/Adol) 15:01:50 OFFICE ENGINEER 2015 SP CPT-72299 Gardasil 15:01:50 OFFICE ENGINEER SP CPT-J1055 Depo-Provera Injection only 150mg 08:51:07 OFFICE ENGINEER SP CPT-52886 Scoliosis w sup/erect 17:37:29 CDT SP
--- OUTSIDE RECORDS SUMMARY | 2019-06-03 17:15 | XMS REPORT | Continuity of Care Document ---
Demographics x POS Preferred Language Unknown SP Marital Status Unknown SP Tenriism Affiliation Unknown SP Race Unknown SP Ethnic Group Unknown SP Author Organization Unknown POS Address Unknown SP Phone Unavailable SP Allergies Active Description Code Type Severity POS Reaction Onset Reported/Identified POS to Patient Clinical Status POS Yes No known drug allergies [id number] ND SP N/A Confirmed or SP Yes No Known Medication Allergies Drug SP N/A N/A SP Medications There is no data. Problems Date Dx Coded Attending Type Code POS Diagnosed By POS 10/16/2014 MILA DELAROSA 844.9 SPRAIN OF SPKNEE LEG NOS SP 10/16/2014 MILA DELAROSA 959.7 LOWER LEG SPINJURY NOS SP 10/16/2014 MILA DELAROSA E927.3 SP TRAUMA MOTION SP 06/25/2018 R63.6 Unde rweight SP SP 06/25/2018 R31.0 Kathe s hematuria SP SP 06/25/2018 Z68.1 BMI less than 20 SP SP 02/12/2019 Lorraine Espino Reason For Visit Z30.09 SP Encounter for other general counseling a nd advice on contraception SP SP 05/28/2019 Z01.419 Gy necological SP routine SP 05/28/2019 Z30.46 Enc ounter for SP of implantable subdermal contraceptive SP Procedures Code Description [place] [address] [facility] DEPT VISIT SP 10/16/2014 SP Results There is no data. Encounters ACCT No. Visit Date/Time Discharge Status POS Pt. Type Provider Facility Loc./Un it POS Complaint POS [id number] 11/07/2014 14:54:00 11/07/2014 14:54 :00 SP Outpatient DOLLY FUNES [facility] RAD SP [id number] 10/16/2014 16:45:00 10/16/2014 17:35 :00 SP Emergency MILA DELAROSA [facility] EMR SP [id number] 10/16/2014 17:04:15 Document SPRegistration SP [id number] 05/28/2019 13:16:00 ACT Unknown SP SP [id number] 02/12/2019 08:19:08 9 23:59:59 SP DIS Outpatient Lorraine Espino [facility] Family [facility] SP [id number] 07/16/2018 08:56:40 9 23:59:59 SP DIS Outpatient Lorraine Espino [facility] Family Med Lab lab SP [id number] 07/16/2018 08:23:02 9 23:59:59 SP DIS Outpatient Lorraine Espino [facility] Family Medicine [facility] [id number] 07/12/2018 14:58:17 9 23:59:59 SP DIS Outpatient Lorraine Espino [facility] Family [facility] [id number] 07/12/2018 14:45:30 9 23:59:59 SP DIS Outpatient Lorraine Espino [facility] Family Med Lab lab SP [id number] 03/27/2018 15:53:11 8 23:59:59 SP DIS Outpatient Wendie Clinton [facility] Family Medicine [facility] [id number] 09/07/2017 14:45:32 8 23:59:59 SP DIS Outpatient Lorraine Espino [facility] Family Med Lab lab SP [id number] 09/07/2017 13:50:39 8 23:59:59 SP DIS Outpatient Lorraine Espino [facility] Family Medicine [facility] SP [id number] 07/31/2017 15:50:00 8 23:59:59 SP CLS Outpatient Micaela Howell [facility] [id number] 05/29/2017 16:23:20 7 23:59:59 SP DIS Outpatient DavidArina Mila [facility] [id number] 11/16/2016 15:54:15 7 17:00:00 SP DIS R LILY MIDDLETON [facility] PT Back Pain, Scoliosis SP [id number] 10/06/2016 17:29:42 23:59:59 SP CLS Outpatient LILY MIDDLETON [facility] LAB lab SP [id number] 05/23/2019 21:25:32 ACT SP Registration SP [id number] 02/02/2014 17:47:02 02/02/2014 23:59: 59 CLS SP Outpatient Jeramie Dowling SP SP
== END 2019-05-10 18:30 | disposition home or self-care (01) ==
LOC: EDUNIT# 17:04 → ER 17:05
DX: S16.1XXA Strain of muscle, fascia and tendon at neck level, initial encounter (principal); Z87.442 Personal history of urinary calculi; V49.40XA Driver injured in collision with unspecified motor vehicles in traffic accident, initial encounter
CPT/HCPCS: 72125